=== PATIENT | male | born 1940 | race Caucasian/White ===

== ENCOUNTER 2018-10-24 16:02 | Inpatient (IN) ==
[2018-10-24] MEDS ORDERED: *HR* Dextrose 50 % in Water (Syg) 50 ML SYRINGE IVP PRN (23:16)
[2018-10-24] MEDS ORDERED: Dextrose Gel 15 GM/37.5 ML TUBE PO PRN ×2 (23:16)
[2018-10-24] MEDS ORDERED: D5% in Water 1,000 ML IVC PRN (23:16)
[2018-10-25] MEDS: traZODone 50 MG TABLET PO PRN ×2 (00:10→20:41)
[2018-10-25] MEDS: Albuterol 2.5 MG/3 ML NEBULIZER IH PRN ×3 (02:14→19:50)
[2018-10-25 05:33] LABS: Basophils % 0.2 %; Eosinophils # 0.1 K/mcL (0.0-0.6); Eosinophils % 1.5 %; Hematocrit 26.3 % (37.5-50.1); Hemoglobin 7.8 g/dL (12.9-16.9); Immature Granulocytes % 1.3 % (0-4); Lymphocytes # 0.9 K/mcL (0.6-4.6); Lymphocytes % 16.7 %; Mean Corpuscular HGB Conc 29.7 g/dL (31.6-35.5); Mean Corpuscular Hemoglobin 25.2 pg (28.0-33.3); Mean Corpuscular Volume 85.1 fL (83.0-100.0); Monocytes # 0.4 K/mcL (0.0-1.3); Monocytes % 7.9 %; Neutrophils # 3.9 K/mcL (1.6-8.9); Platelet Count 207 K/mcL (140-400); Red Blood Count 3.09 M/mcL (4.19-5.50); Red Cell Distribution Width 18.2 % (11.5-14.5); Segmented Neutrophils % 72.4 %; White Blood Count 5.4 K/mcL (4.3-11.1)
[2018-10-25 05:49] LABS: Albumin 2.9 g/dL (3.5-5.7); Albumin/Globulin Ratio 1.1 (1.1-2.2); Bilirubin,Total 0.6 mg/dL (0.3-1.0); Calcium 8.5 mg/dL (8.6-10.3); Globulin 2.7 g/dL (2.4-3.5); Magnesium 2.4 mg/dL (1.6-2.6); Potassium 4.2 mEq/L (3.5-5.1); Total Protein 5.6 g/dL (6.4-8.9)
[2018-10-25] MEDS ORDERED: (Tiotropium Bromide [Spiriva Respimat] 2 PUFF) IH SCH (09:00)
--- NOTE | 2018-10-25 09:29 | Internal Med History&Physical ---
Date of Encounter: 10/25/18 Time of Encounter: 09:32 Assessment and Plan (1) CAD (coronary artery disease) Current visit: Yes Status: Chronic Patient is a transfer from [facility] where he was treated for an acute IL and CHF. Patient had a left heart catheter which showed severe multivessel disease, but was not a surgical candidate and received PTCA 3. Patient also was treated for atrial fibrillation with RVR, requiring cardiov ersion and the addition of amiodarone. Patient was also diagnosed with CHF with most recent EF of 30%. Currently patient appears relaxant denies any chest discomforts or palpitations. This morning's EKG shows a sinus rhythm with occasional PACs. Rate controlled at 84 bpm. We will continue on his current medications and with current plan of care. Therapy evaluation pending, with patient planned participation in therapy to be as tolerated due to his cardiac syndrome Qualifiers: Coronary Disease-Associated Artery/Lesion type: [place] artery [place] vs. transplanted heart: [place] heart Associated angina: angina presence unspecified Qualified Code(s): I25.10 - Atherosclerotic heart disease of [place] coronary artery without angina pectoris (2) COPD (chronic obstructive pulmonary disease) Current visit: Yes Status: Chronic Patient with a long history of COPD and had originally presented to the emergency department on 09/30/18 with complaints of shortness of breath, requiring intubation. Patient was on ventilator for approximately 8 days and was extubated with continued use of BiPAP at night. Patient remains on supplemental oxygen and appears relaxed while at rest. Denies any dyspnea or productive cough. Therapy evaluation is pending. We will continue on current medications and bronchodilators. X-ray was obtained this morning which showed continued left lower lobe obesities and a small-moderate pleural effusion. Continued slight pulmonary edema noted on chest x-ray. Lungs have fine rales he indra to the lower third of his posterior [place]. Qualifiers: COPD type: unspecified COPD Qualified Code(s): J44.9 - Chronic obstructive pulmonary disease, unspecified (3) Lower gastrointestinal bleed Current visit: Yes Status: Acute Patient had experienced tarry stools during this admission at [facility] and a drop in his hemoglobin. Patient had a colonoscopy which showed a mass to the hepatic flexure. No biopsy results abdomen provided at this time. No signs of active bleeding at this time but his admission hemoglobin at this facility is 7.8. We will continue to monitor for signs of active bleeding and will repeat his hemoglobin in the morning. We will review his discharge orders for follow- up plan due to the colon mass (4) Atrial fibrillation Current visit: Yes Status: Chronic Patient with a history of atrial fibrillation. During his hospitalization at [facility] he experienced RVR, requiring cardioversion and the addition of amiodarone. Currently he has a controlled rate of less than 100 and his EKG this morning showed patient to be in we will continue with current medications and continue to monitor closely. sinus rhythm with occasional PACs. Qualifiers: Atrial fibrillation type: unspecified Qualified Code(s): I48.91 - Unspecified atrial fibrillation (5) HFrEF (heart failure with reduced ejection fraction) Current visit: Yes Status: Acute Patient was diagnosed with severe CHF with a 30% ejection fraction per [facility]. He currently has fine rales her to the lower posterior third of his lungs. No dyspnea noted during rest. Minimal pedal edema noted. Chest x-ray did show mild pulmonary edema. We will continue with current medications. We will obtain daily weights and monitor closely. Qualifiers: Heart failure chronicity: acute Qualified Code(s): I50.21 - Acute systolic (congestive) heart failure (6) Diabetes Current visit: Yes Status: Acute Patient with long history of diabetes. Currently his fingerstick show glucose levels on less than 200. We will continue with his Levemir dosing and sliding scale coverage. 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 Patient's most recent creatinine is 1.62. We will continue to monitor patient's progress with serial labs. We will continue on current medications. Qualifiers: Chronic kidney disease stage: stage 3 (moderate) Qualified Code(s): N18.3 - Chronic kidney disease, stage 3 (moderate) Internal Medicine - H&P: HPI Chief complaint: weakness Admitted From: Hospital to Hospital Transfer Plans for Post Hospital Care: Home History of present illness: Mr. Guerrero is a 78 year old male, who was transferred to this facility from [facility] where he was treated for respiratory failure, coronary artery disease and evaluated for lower GI bleed. Patient originally presented to [facility] on 09/30/18 with complaints of shortness of breath, which eventually acquired intubation. He was found to have elevated troponins and had a left heart catheter that time which showed severe multivessel disease, to include left main disease. Patient was then transferred to [facility] for further evaluation due to his high risk. C also showed severe left ventricular systolic dysfunction and an EF of 30%. Patient was considered a nonsurgical candidate at [facility] and received 3 coronary stents. His admission was complicated with atrial fibrillation with RVR, which required cardio conversion and the addition of amiodarone to manage his rhythm and rate. Patient remained intubated for a approximate total of 8 days and was extubated, but continues BiPAP at night. Patient was also treated for left lower lobe pneumonia and on CAT scan was found to have a 3 cm left upper lobe nodule. Patient received a bronchoscopy due to hemoptysis, with his current washings results unknown. During his stay at the facility patient was found to have tarry stools and a drop in his hemoglobin. Patient had a colonoscopy which also showed a colon mass at the hepatic flexure. Biopsies were taken with no known results at this time. Patient has a long history of COPD with CHF, CAD, CKD, DM and hypertension. Patient presently appears relaxed and states that his breathing is not at his best but he denies any current dyspnea while at rest. He continues on oxygen per nasal cannula at this time. He denies any productive cough, chest palpitations or chest discomforts. Patient states that he has not ambulated much since his extubation from the ventilator. Past Med Surg Social Fam HX - Past Medical History Medical history: CHF, COPD, diabetes, hypertension, myocardial infarction, other Additional medical history: pulmonary nodles, renal cysts, pneumonia, oxygen use Psychiatric history: no psych history - Past Surgical History Surgical History: angioplasty/stent, herniorrhaphy, other Additional surgical history: LHC, betsey cataracts - Social History Smoking Status: Former smoker Smokeless Tobacco Status: No Alcohol use: none Drug use: none Internal Medicine - H&P: Meds Insulin Glargine,Hum.rec.anlog [Lantus Solostar] 10 units SQ QPM 05/16/15 [History] Lisinopril [Zestril] 5 mg PO DAILY 05/16/15 [History] traZODone [TraZODone] 50 mg PO HS PRN 05/16/15 [History] Atorvastatin Calcium [Lipitor] 40 mg PO QPM 01/07/17 [History] Budesonide/Formoterol 160/4.5 [Symbicort 160/4.5] 2 puff IH BIDR 01/07/17 [History] Cholecalciferol (D-3) [Vitamin D] 1,000 unit PO DAILY 01/07/17 [History] Ferrous Gluconate 324 mg PO DAILY 01/07/17 [History] GlipiZIDE [Glucotrol] 5 mg PO QAM 01/07/17 [History] Guaifenesin [Mucinex] 600 mg PO BID PRN 01/07/17 [History] Isosorbide MONOnitrate (24 HR) [Imdur] 60 mg PO DAILY 01/07/17 [History] Latanoprost [Xalatan] 1 drop BOTH EYES HS 01/07/17 [History] Loratadine [Claritin] 10 mg PO DAILY 01/07/17 [History] Magnesium Oxide [Magnesium] 400 mg PO DAILY 01/07/17 [History] Nitroglycerin [Nitrostat] 0.4 mg SL Q5M PRN 01/07/17 [History] Oxygen 4 l NS CONT 01/07/17 [History] Pantoprazole Sodium [Protonix] 40 mg PO BID 01/07/17 [History] Potassium Chloride [Klor-Con 10] 10 meq PO DAILY 01/07/17 [History] Albuterol Neb [Proventil Neb] 2.5 mg IH Q6HR PRN 09/26/18 [History] Albuterol Sulfate [Proventil Inhaler] 2 puff IH Q4H PRN 09/26/18 [History] Buspirone HCl [Buspar] 10 mg PO TID 09/26/18 [History] Calcium Carbonate/Vitamin D3 [Calcium 500 + Vit D Caplet] 1 tab PO BID 09/26/18 [History] Tiotropium [place] [Spiriva Respimat] 2 puff IH DAILY 09/26/18 [History] Folic Acid 800 mcg PO DAILY 10/24/18 [History] Insulin DETEMIR [Levemir] 10 unit SQ HS 10/24/18 [History] Metoprolol [Lopressor] 25 mg PO BID 10/24/18 [History] Allergy/AdvReac Type Severity Reaction Status Date / Time contrast dye Allergy Hives Uncoded 09/25/18 08:50 All Systems PM: A 10-system review of systems was performed and is negative for pertinent findings except as documented above in the HPI. - Constitutional Constitutional: as per HPI, no chills, no fever(s), no night sweats - EENT Eyes: as per HPI, no change in vision, no discharge, no pain, no photophobia Ears: as per HPI, no ear discharge, no ear pain, no tinnitus Nose, mouth and throat: as per HPI, no dysphagia, no nasal discharge, no neck pain, no sore throat - Breasts Breasts: as per HPI - Cardiovascular Cardiovascular ROS IM: as per HPI, no chest pain, no diaphoresis, no dyspnea, no lightheadedness, no palpitations, no syncope - Respiratory Respiratory: as per HPI, no cough, no dyspnea, no wheezing, no excessive phlegm production - Gastrointestinal Gastrointestinal: as per HPI, no abdominal pain, no diarrhea, no hematemesis, no hematochezia, no melena, no nausea, no vomiting - Genitourinary Genitourinary ROS male: as per HPI - Musculoskeletal Musculoskeletal ROS IM: as per HPI, no numbness, no tingling - Integumentary Integumentary IM: as per HPI, no rash, no unusual bruising - Neurological Neurological ROS: as per HPI, no confusion, no convulsions, no focal weakness, no numbness, no tingling, no tremor(s) - Psychiatric Psychiatric: as per HPI - Hematologic/Lymphatic Hematologic/Lymphatic: no easy bruising - Constitutional Vitals: Temp Pulse Resp BP Pulse Ox 97.8 F 86 18 106/54 92 10/25/18 07:13 10/25/18 07:13 10/25/18 07:13 10/25/18 07:13 10/25/18 07:13 General appearance: Present: A&O X 3, pleasant - Head Head exam: Present: atraumatic, normocephalic - Eye Eye exam: Present: PERRL, conjuntiva pink, sclera anicteric Pupils: Present: PERRL - Neck Neck exam general surgery: Present: supple, trachea midline. Absent: lymphadenopathy - Respiratory Respiratory exam: Present: decreased breath sounds, CTAB, rales. Absent: access ory muscle use, rhonchi, wheezes Additional comments: Lungs are clear throughout upper [place] but noted fine posterior bibasilar rales to the lower third of his lung [place]. Respiratory effort appears relaxed. No productive cough noted. - Cardiovascular Cardiovascular exam: Present: RRR, +S1, +S2, systolic murmur. Absent: diastolic murmur, gallop, rubs - GI/Abdominal GI/Abdominal exam: Present: normal bowel sounds, soft, no peritoneal signs. Absent: distended, tenderness - Extremities Exam Extremities exam: Present: pedal edema, warm, radial pulses palpable and symmetrical. Absent: calf tenderness, cyanotic Additional comments: Slight nonpitting edema to bilateral lower extremities - Neurological Exam Neurological exam: Present: CN II-XII intact, oriented X3, no focal deficits. Absent: pronater drift, facial droop, speech deficit - Skin Skin exam: Present: dry, intact Internal Med - H&P Results - Labs CBC & Chem 7: 10/25/18 05:19 10/25/18 05:19 Labs: Short CBC 10/25/18 Range/Units 05:19 WBC 5.4 (4.3-11.1) K/mcL Hgb 7.8 L (12.9-16.9) g/dL Hct 26.3 L (37.5-50.1) % Plt Count 207 (140-400) K/mcL Neutrophils # 3.9 (1.6-8.9) K/mcL BMP 10/25/18 05:19 Sodium 136 Potassium 4.2 Chloride 101 Carbon Dioxide 31 H BUN 37 H Creatinine 1.62 H Glucose 142 H Calcium 8.5 L Liver Function 10/25/18 Range/Units 05:19 Total Bilirubin 0.6 (0.3-1.0) mg/dL AST 15 (13-39) Units/L ALT 20 (7-52) Units/L Alkaline Phosphatase 45 (34-104) Units/L Albumin 2.9 L (3.5-5.7) g/dL - Impressions ITS Impressions Chest X-Ray 10/25/18 08:34 IMPRESSION: 1. Interval removal of all lines and tubes. 2. Left base opacity with small to moderate pleural effusion. 3. Cardiomegaly with pulmonary edema. D/ / 10/25/2018 09:10:37 Shae Villarreal MD / jese Interpreting Provider: Shae Villarreal MD
[2018-10-25] MEDS: Budesonide/Formoterol 160/4.5 1 PUFF INH IH SCH ×2 (09:42→19:53)
[2018-10-25] MEDS ORDERED: Tiotropium 18 MCG inhalation IH SCH (09:45)
[2018-10-25] MEDS: Isosorbide MONOnitrate (24 HR) 60 MG TAB.ER.24H PO SCH (09:46)
[2018-10-25] MEDS: GlipiZIDE 5 MG TABLET PO SCH (09:46)
[2018-10-25] MEDS: *HR* Amiodarone 200 MG TABLET PO SCH (09:47)
[2018-10-25] MEDS: Cholecalciferol (D-3) 1,000 UNIT (25MCG) TABLET PO SCH (09:47)
[2018-10-25] MEDS: Folic Acid 1 MG TABLET PO SCH (09:47)
[2018-10-25] MEDS: Loratadine 10 MG TABLET PO SCH (09:48)
[2018-10-25] MEDS: Magnesium Oxide 400 MG TABLET PO SCH (09:48)
[2018-10-25] MEDS: Metoprolol XL (24 HR) Succ 25 MG TAB.ER.24H PO SCH ×2 (09:48→19:54)
[2018-10-25] MEDS: Insulin LISPRO 300 UNITS/3 ML VIAL SQ SCH ×4 (09:53→20:34)
[2018-10-25] MEDS: TIOTROPIUM IH SCH (11:18)
--- NOTE | 2018-10-25 12:10 | Electrocardiograph Report ---
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
[2018-10-25] MEDS: Insulin DETEMIR 100 UNIT/ML X5UNITS SQ SCH (20:35)
[2018-10-25] MEDS: Latanoprost 2.5 ML BOTTLE BOTH EYES SCH (20:41)
[2018-10-26] MEDS: *HR* Enoxaparin 30 MG/0.3 ML SYRINGE SQ SCH (05:11)
[2018-10-26] MEDS: Albuterol 2.5 MG/3 ML NEBULIZER IH PRN ×2 (05:15→19:27)
[2018-10-26 05:56] LABS: Hematocrit 27.2 % (37.5-50.1); Hemoglobin 8.1 g/dL (12.9-16.9); Mean Corpuscular HGB Conc 29.8 g/dL (31.6-35.5); Mean Corpuscular Hemoglobin 25.6 pg (28.0-33.3); Mean Corpuscular Volume 85.8 fL (83.0-100.0); Mean Platelet Volume 9.2 fL (9.4-12.4); Platelet Count 251 K/mcL (140-400); Red Blood Count 3.17 M/mcL (4.19-5.50); Red Cell Distribution Width 18.2 % (11.5-14.5); White Blood Count 5.3 K/mcL (4.3-11.1)
[2018-10-26 06:13] LABS: Calcium 8.8 mg/dL (8.6-10.3); Magnesium 2.5 mg/dL (1.6-2.6); Potassium 4.6 mEq/L (3.5-5.1)
[2018-10-26 06:26] LABS: Thyroid Stimulating Hormone 8.468 mcIU/mL (0.340-5.600)
[2018-10-26] MEDS: Folic Acid 1 MG TABLET PO SCH (08:27)
[2018-10-26] MEDS: GlipiZIDE 5 MG TABLET PO SCH (08:28)
[2018-10-26] MEDS: Metoprolol XL (24 HR) Succ 25 MG TAB.ER.24H PO SCH (08:28)
[2018-10-26] MEDS: Cholecalciferol (D-3) 1,000 UNIT (25MCG) TABLET PO SCH (08:28)
[2018-10-26] MEDS: *HR* Amiodarone 200 MG TABLET PO SCH (08:28)
[2018-10-26] MEDS: Loratadine 10 MG TABLET PO SCH (08:28)
[2018-10-26] MEDS: Magnesium Oxide 400 MG TABLET PO SCH (08:28)
[2018-10-26] MEDS: Isosorbide MONOnitrate (24 HR) 60 MG TAB.ER.24H PO SCH (08:28)
[2018-10-26] MEDS: Insulin LISPRO 300 UNITS/3 ML VIAL SQ SCH ×4 (08:30→22:59)
[2018-10-26] MEDS: Budesonide/Formoterol 160/4.5 1 PUFF INH IH SCH ×2 (11:16→19:27)
[2018-10-26] MEDS: TIOTROPIUM IH SCH (11:19)
--- NOTE | 2018-10-26 11:25 | Internal Med Progress Note ---
Date of Encounter: 10/26/18 Time of Encounter: 11:23 - Assessment and plan (1) CAD (coronary artery disease) Current Visit: Yes Status: Chronic Assessment and plan: No acute issues. Patient has dissipated physical therapy yesterday and denied any chest discomforts or palpitations. Patient states that he did well with therapy and denies any dyspnea. We will continue with current plan of care and medications. Qualifiers: Coronary Disease-Associated Artery/Lesion type: [place] artery [place] vs. transplanted heart: [place] heart Associated angina: angina presence unspecified Qualified Code(s): I25.10 - Atherosclerotic heart disease of [place] coronary artery without angina pectoris (2) COPD (chronic obstructive pulmonary disease) Current Visit: Yes Status: Chronic Assessment and plan: No acute issues. Patient denies any dyspnea on exertion while performing therapy yesterday. Patient continues on supplemental oxygen at 2 L/m nasal cannula. Noted fine rales to use posterior bases on auscultation. Patient sta juan that he has had a productive cough with hemoptysis, , but that only a scant amount of blood has been noted.. Remains afebrile. We will continue with current bronchodilators and medications. Qualifiers: COPD type: unspecified COPD Qualified Code(s): J44.9 - Chronic obstructive pulmonary disease, unspecified (3) Lower gastrointestinal bleed Current Visit: Yes Status: Acute Assessment and plan: No acute issues. Patient denies any melena. Patient's most recent hemoglobin has actually increased to 8.1. We will continue to monitor through serial labs. (4) Diabetes Current Visit: Yes Status: Chronic Assessment and plan: No acute issues. Patient's glucoses were well-controlled with most readings less than 150. 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 Patient's most recent creatinine has slightly increased 1.90. We will continue to monitor patient's mental status to serial labs. We will continue on current medications. We will obtain daily weights Qualifiers: Chronic kidney disease stage: stage 3 (moderate) Qualified Code(s): N18.3 - Chronic kidney disease, stage 3 (moderate) - Subjective Interval history: Patient appears relaxed and currently denies any discomforts or shortness of breath. Patient states that therapy was progressing well yesterday and denied any dyspnea during his exertion. Denies any chest discomforts or palpitations. - Constitutional Vitals: Temp Pulse Resp BP Pulse Ox 98.0 F 78 18 100/58 96 10/26/18 07:00 10/26/18 07:00 10/26/18 07:00 10/26/18 07:00 10/26/18 07:00 General appearance: Present: A&O X 3, pleasant - Head Head exam: Present: atraumatic, normocephalic - Eye Eye exam: Present: PERRL, conjuntiva pink, sclera anicteric Pupils: Present: PERRL - Neck Neck exam general surgery: Present: supple, trachea midline. Absent: lymphadenopathy - Respiratory Respiratory exam: Present: decreased breath sounds, CTAB, rales. Absent: accessory muscle use, rhonchi, wheezes Additional comments: Lungs are clear throughout upper [place] with noted diminished breath sounds to the lower half of his lung [place]. Patient with fine rales her to the posterior basilar. Respiratory effort appears relaxed while at rest. - Cardiovascular Cardiovascular exam: Present: RRR, +S1, +S2. Absent: diastolic murmur, gallop, rubs, systolic murmur - GI/Abdominal GI/Abdominal exam: Present: normal bowel sounds, soft, no peritoneal signs. Absent: distended, tenderness - Extremities Exam Extremities exam: Present: pedal edema, warm, radial pulses palpable and symmetrical. Absent: calf tenderness, cyanotic - Neurological Exam Neurological exam: Present: CN II-XII intact, oriented X3, no focal deficits. Absent: pronater drift, facial droop, speech deficit - Skin Skin exam: Present: dry, intact Internal Medicine: Result - Labs CBC & Chem 7: 10/26/18 05:45 10/26/18 05:45 Labs: Short CBC 10/26/18 Range/Units 05:45 WBC 5.3 (4.3-11.1) K/mcL Hgb 8.1 L (12.9-16.9) g/dL Hct 27.2 L (37.5-50.1) % Plt Count 251 (140-400) K/mcL [facility] 10/26/18 05:45 Sodium 135 L Potassium 4.6 Chloride 99 Carbon Dioxide 31 H BUN 42 H Creatinine 1.90 H Glucose 132 H Calcium 8.8 Consult Discharge Plan - Plan Referrals: Kuldip Forrest MD [Primary Care Provider] -
[2018-10-26] MEDS ORDERED: Insulin DETEMIR 100 UNIT/ML per UNIT SQ SCH (22:45)
[2018-10-26] MEDS: traZODone 50 MG TABLET PO PRN (22:59)
[2018-10-26] MEDS: Latanoprost 2.5 ML BOTTLE BOTH EYES SCH (23:20)
[2018-10-27] MEDS: *HR* Enoxaparin 30 MG/0.3 ML SYRINGE SQ SCH (05:43)
[2018-10-27] MEDS: Albuterol 2.5 MG/3 ML NEBULIZER IH PRN ×3 (06:16→18:53)
[2018-10-27] MEDS: Budesonide/Formoterol 160/4.5 1 PUFF INH IH SCH ×2 (08:35→20:41)
[2018-10-27] MEDS: TIOTROPIUM IH SCH (08:37)
[2018-10-27] MEDS: Nitroglycerin 0.4 MG TAB.SUBL SL PRN ×2 (09:06→09:11)
[2018-10-27] MEDS: Insulin LISPRO 300 UNITS/3 ML VIAL SQ SCH ×4 (09:26→20:34)
[2018-10-27] MEDS: Cholecalciferol (D-3) 1,000 UNIT (25MCG) TABLET PO SCH (09:45)
[2018-10-27] MEDS: Folic Acid 1 MG TABLET PO SCH (09:45)
[2018-10-27] MEDS: Loratadine 10 MG TABLET PO SCH (09:45)
[2018-10-27] MEDS: Magnesium Oxide 400 MG TABLET PO SCH (09:45)
[2018-10-27] MEDS: Metoprolol XL (24 HR) Succ 50 MG TAB.ER.24H PO SCH (09:46)
[2018-10-27] MEDS: Isosorbide MONOnitrate (24 HR) 60 MG TAB.ER.24H PO SCH (09:46)
[2018-10-27] MEDS: *HR* Amiodarone 200 MG TABLET PO SCH (09:46)
[2018-10-27] MEDS: GlipiZIDE 5 MG TABLET PO SCH (09:46)
[2018-10-27] MEDS: Insulin DETEMIR 100 UNIT/ML X5UNITS SQ SCH (10:28)
--- NOTE | 2018-10-27 10:43 | Electrocardiograph Report ---
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
[2018-10-27 11:15] LABS: Basophils % 0.2 %; Eosinophils # 0.1 K/mcL (0.0-0.6); Eosinophils % 1.8 %; Lymphocytes # 0.9 K/mcL (0.6-4.6); Mean Corpuscular HGB Conc 28.6 g/dL (31.6-35.5); Mean Corpuscular Hemoglobin 24.8 pg (28.0-33.3); Mean Platelet Volume 9.7 fL (9.4-12.4); Monocytes # 0.4 K/mcL (0.0-1.3); Monocytes % 7.1 %; Neutrophils # 4.6 K/mcL (1.6-8.9); Platelet Count 281 K/mcL (140-400); Red Blood Count 3.22 M/mcL (4.19-5.50); Red Cell Distribution Width 18.4 % (11.5-14.5); Segmented Neutrophils % 75.9 %; White Blood Count 6.1 K/mcL (4.3-11.1)
--- NOTE | 2018-10-27 11:42 | Internal Med Progress Note ---
Date of Encounter: 10/27/18 Time of Encounter: 11:40 - Assessment and plan (1) CAD (coronary artery disease) Current Visit: Yes Status: Chronic Assessment and plan: Patient had an episode of chest pain this morning which responded well to nitroglycerin. EKG showed no ischemic changes or ectopy. Patient currently states that he is pain-free and denies any palpitations. We will continue with current medications and have patient continue with therapy as tolerated. Qualifiers: Coronary Disease-Associated Artery/Lesion type: [place] artery [place] vs. transplanted heart: [place] heart Associated angina: angina presence unspecified Qualified Code(s): I25.10 - Atherosclerotic heart disease of [place] coronary artery without angina pectoris (2) COPD (chronic obstructive pulmonary disease) Current Visit: Yes Status: Chronic Assessment and plan: No acute issues. Patient denies any dyspnea on exertion while performing therapy yesterday. Patient continues on supplemental oxygen at 2 L/m nasal cannula. Noted fine rales to use posterior bases on auscultation. Patient states that he has had a productive cough with hemoptysis, , but that only a scant amount of blood has been noted.. Remains afebrile. We will continue with current bronchodilators and medications. Qualifiers: COPD type: unspecified COPD Qualified Code(s): J44.9 - Chronic obstructive pulmonary disease, unspecified (3) Lower gastrointestinal bleed Current Visit: Yes Status: Acute Assessment and plan: No acute issues. Patient denies any melena. Patient's most recent hemoglobin has actually increased to 8.1. We will continue to monitor through serial labs. (4) Diabetes Current Visit: Yes Status: Chronic Assessment and plan: No acute issues. Patient's glucoses were well-controlled with most readings less than 150. We will continue with sliding scale coverage and current medications Qualifiers: Diabetes mellitus type: type 2 Diabetes mellitus senior living insulin use: with senior living use Diabetes mellitus complication status: with circulatory complication Diabetes mellitus complication detail: with other circulatory complications Qualified Code(s): E11.59 - Type 2 diabetes mellitus with other circulatory complications; Z79.4 - retirement (current) use of insulin (5) Chronic kidney disease (CKD) Current Visit: Yes Status: Chronic Assessment and plan: No acute issues. Patient's most recent creatinine has slightly increased 1.90. We will continue to monitor patient's mental status to serial labs. We will continue on current medications. We will obtain daily weights Qualifiers: Chronic kidney disease stage: stage 3 (moderate) Qualified Code(s): N18.3 - Chronic kidney disease, stage 3 (moderate) - Time Spent With Patient less than 15 minutes - Subjective Interval history: Patient with complaints of substernal chest pressure this morning was slight dyspnea related. Radiation of pain. Patient states the characteristics of the pain is similar to what he had in recent past. Patient had an EKG that was performed which showed no ischemic changes or ectopy. He was given a sublingual nitroglycerin and after approximately 5-7 minutes stated that his pain had resolved. Patient was reevaluated approximately 30 minutes later and states that his pain continues to be resolved and that his pulmonary status is imp roving. He denied any palpitations. Patient states that therapy has been progressing well for him. - Constitutional Vitals: Temp Pulse Resp BP Pulse Ox 98.2 F 83 20 108/60 98 10/27/18 11:03 10/27/18 11:03 10/27/18 11:03 10/27/18 11:03 10/27/18 11:03 General appearance: Present: A&O X 3, pleasant - Head Head exam: Present: atraumatic, normocephalic - Eye Eye exam: Present: PERRL, conjuntiva pink, sclera anicteric Pupils: Present: PERRL - Neck Neck exam general surgery: Present: supple, trachea midline. Absent: lymphadenopathy - Respiratory Respiratory exam: Present: decreased breath sounds, CTAB, rales. Absent: acces max muscle use, rhonchi, wheezes Additional comments: Patient's lungs are clear throughout upper [place] but diminished diminished breath sounds to lower half [place]. Noted fine scattered rales posterior bases. Respiratory effort appears relaxed. - Cardiovascular Cardiovascular exam: Present: RRR, +S1, +S2, systolic murmur. Absent: diastolic murmur, gallop, rubs - GI/Abdominal GI/Abdominal exam: Present: normal bowel sounds, soft, no peritoneal signs. Absent: distended, tenderness - Extremities Exam Extremities exam: Present: warm, radial pulses palpable and symmetrical. Absent: calf tenderness, cyanotic, pedal edema - Neurological Exam Neurological exam: Present: CN II-XII intact, oriented X3, no focal deficits. Absent: pronater drift, facial droop, speech deficit - Skin Skin exam: Present: dry, intact Internal Medicine: Result - Labs CBC & Chem 7: 10/27/18 09:13 10/26/18 05:45 Labs: Short CBC 10/27/18 Range/Units 09:13 WBC 6.1 (4.3-11.1) K/mcL Hgb 8.0 L (12.9-16.9) g/dL Hct 28.0 L (37.5-50.1) % Plt Count 281 (140-400) K/mcL Cardiac Enzymes 10/27/18 Range/Units 09:13 Troponin I 0.03 (< 0.04) ng/mL - Impressions Impressions Chest X-Ray 10/25/18 08:34 IMPRESSION: 1. Interval removal of all lines and tubes. 2. Left base opacity with small to moderate pleural effusion. 3. Cardiomegaly with pulmonary edema. D/ / 10/25/2018 09:10:37 Shae Villarreal MD / jese Interpreting Provider: Shae Villarreal MD Chest X-Ray 10/27/18 09:06 IMPRESSION: No substantial interval change. Persistent left pleural effusion with associated atelectasis/pneumonia. Widespread parenchymal opacity may reflect pulmonary edema or possibly pneumonia. D/ / Truong Simeon MD / Truong Simeon MD Interpreting Provider: Truong Simeon MD Consult Discharge Plan - Plan Referrals: Kuldip Forrest MD [Primary Care Provider] -
[2018-10-27 13:11] LABS: Hypochromasia Present (Not Present); Ovalocytes 1+ (Not Present); Platelet Estimate Normal (Normal)
[2018-10-27] MEDS: Furosemide 40 MG TABLET PO SCH (14:15)
[2018-10-27] MEDS: Latanoprost 2.5 ML BOTTLE BOTH EYES SCH (20:41)
[2018-10-27] MEDS ORDERED: Insulin DETEMIR 100 UNIT/ML X5UNITS SQ SCH (21:00)
[2018-10-27] MEDS: traZODone 50 MG TABLET PO PRN (22:28)
[2018-10-28] MEDS: Albuterol 2.5 MG/3 ML NEBULIZER IH PRN ×2 (03:12→19:21)
[2018-10-28] MEDS: *HR* Enoxaparin 30 MG/0.3 ML SYRINGE SQ SCH (05:09)
[2018-10-28] MEDS: Nitroglycerin 0.4 MG TAB.SUBL SL PRN (05:16)
[2018-10-28 05:42] LABS: Basophils % 0.2 %; Eosinophils # 0.1 K/mcL (0.0-0.6); Eosinophils % 1.6 %; Hematocrit 25.6 % (37.5-50.1); Hemoglobin 7.5 g/dL (12.9-16.9); Immature Granulocytes % 1.2 % (0-4); Lymphocytes % 18.4 %; Mean Corpuscular HGB Conc 29.3 g/dL (31.6-35.5); Mean Corpuscular Hemoglobin 25.2 pg (28.0-33.3); Mean Corpuscular Volume 85.9 fL (83.0-100.0); Mean Platelet Volume 9.1 fL (9.4-12.4); Monocytes # 0.4 K/mcL (0.0-1.3); Monocytes % 7.2 %; Platelet Count 269 K/mcL (140-400); Red Blood Count 2.98 M/mcL (4.19-5.50); Red Cell Distribution Width 18.1 % (11.5-14.5); Segmented Neutrophils % 71.4 %; White Blood Count 5.7 K/mcL (4.3-11.1)
[2018-10-28 06:01] LABS: Calcium 8.4 mg/dL (8.6-10.3); Potassium 5.1 mEq/L (3.5-5.1)
[2018-10-28] MEDS: Magnesium Oxide 400 MG TABLET PO SCH (07:57)
[2018-10-28] MEDS: Insulin LISPRO 300 UNITS/3 ML VIAL SQ SCH ×4 (07:58→20:43)
[2018-10-28] MEDS: Loratadine 10 MG TABLET PO SCH (07:58)
[2018-10-28] MEDS: Folic Acid 1 MG TABLET PO SCH (07:58)
[2018-10-28] MEDS: GlipiZIDE 5 MG TABLET PO SCH (07:58)
[2018-10-28] MEDS: *HR* Amiodarone 200 MG TABLET PO SCH (07:58)
[2018-10-28] MEDS: Isosorbide MONOnitrate (24 HR) 60 MG TAB.ER.24H PO SCH (07:59)
[2018-10-28] MEDS: Cholecalciferol (D-3) 1,000 UNIT (25MCG) TABLET PO SCH (08:00)
[2018-10-28] MEDS: Furosemide 40 MG TABLET PO SCH (08:00)
[2018-10-28] MEDS: Metoprolol XL (24 HR) Succ 50 MG TAB.ER.24H PO SCH (08:04)
[2018-10-28] MEDS: TIOTROPIUM IH SCH (09:53)
[2018-10-28] MEDS: Budesonide/Formoterol 160/4.5 1 PUFF INH IH SCH ×2 (09:53→19:23)
--- NOTE | 2018-10-28 18:08 | Internal Med Progress Note ---
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 No sasha chest pain. His blood sugars have been running low and he gets 10 U long acting insulin at hs. likely having overnight low blood sugars symptomatic. Will DC hs insulin. His blood pressures run low he has apt tuesday with cardiology dr rocha. he is new on amiodarone he has toprol xl 50 but this has been held last few days he has hyperdynamic pulses will restart beta eugenia at low dose 12.5 mg r egular bid. add ASA 81 mg stop lisinopril 5 mg lovenox being DC due to anemia and HB drift down Patient states that he did well with therapy and denies any dyspnea. We will continue with current plan of care and medications. Qualifiers: Coronary Disease-Associated Artery/Lesion type: [place] artery [place] vs. transplanted heart: [place] heart Associated angina: angina presence unspecified Qualified Code(s): I25.10 - Atherosclerotic heart disease of [place] coronary artery without angina pectoris (2) COPD (chronic obstructive pulmonary disease) Current Visit: Yes Status: Chronic Assessment and plan: No acute issues. pt still with scant sputum cough. states he has had 2 recent bronchosopies. Patient continues on supplemental oxygen at 2 L/m nasal cannula. Noted fine rales to use posterior bases on auscultation. Patient states that he has had a productive cough with hemoptysis, , but that no blood has been noted.. Remains afebrile. We will continue with current bronchodilators and medications. Qualifiers: COPD type: unspecified COPD Qualified Code(s): J44.9 - Chronic obstructive pulmonary disease, unspecified (3) Lower gastrointestinal bleed with ANEMIA Current Visit: Yes Status: Acute Assessment and plan: no abd pain poor eating Patient denies any melena. Patient's most recent hemoglobin drift back down from 8.1 to 7.5 will DC lovenox will check b12 and iron levels . We will continue to mo nitor through serial labs. 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 Patient's most recent creatinine has slightly increased 1.90. We will continue to monitor patient's mental status to serial labs. We will continue on current medications. We will obtain daily weights Qualifiers: Chronic kidney disease stage: stage 3 (moderate) Qualified Code(s): N18.3 - Chronic kidney disease, stage 3 (moderate) - Subjective Interval history: pt currently stable as above he is discouraged over prolonged illness EXAM General appearance: Present: A&O X 3, pleasant - Head Head exam: Present: atraumatic, normocephalic - Eye Eye exam: Present: PERRL, conjuntiva pink, sclera anicteric Pupils: Present: PERRL - Neck Neck exam general surgery: Present: supple, trachea midline. Absent: lymphadenopathy - Respiratory Respiratory exam: Present: decreased breath sounds, CTAB, rales. Absent: accessory muscle use, rhonchi, wheezes Additional comments: Lungs are clear throughout upper [place] with noted diminished breath sounds to the lower half of his lung [place]. Patient with fine rales her to the posterior basilar. Respiratory effort appears relaxed while at rest. - Cardiovascular Cardiovascular exam: Present: RRR, +S1, +S2. Absent: diastolic murmur, gallop, rubs, systolic murmur - GI/Abdominal GI/Abdominal exam: Present: normal bowel sounds, soft, no peritoneal signs. Absent: distended, tenderness - Extremities Exam Extremities exam: Present: pedal edema, warm, radial pulses palpable and symmetrical. Absent: calf tenderness, cyanotic - Neurological Exam Neurological exam: Present: CN II-XII intact, oriented X3, no focal deficits. Absent: pronater drift, facial droop, speech deficit - Skin Skin exam: Present: dry, intact - Constitutional Vitals: Temp Pulse Resp BP Pulse Ox 98.6 F 80 18 112/59 97 10/28/18 11:52 10/28/18 11:52 10/28/18 11:52 10/28/18 11:52 10/28/18 11:52 General appearance: Present: A&O X 3, pleasant Internal Medicine: Result - Labs CBC & Chem 7: 10/29/18 04:34 10/28/18 05:40 Labs: Short CBC 10/28/18 Range/Units 05:40 WBC 5.7 (4.3-11.1) K/mcL Hgb 7.5 L (12.9-16.9) g/dL Hct 25.6 L (37.5-50.1) % Plt Count 269 (140-400) K/mcL Neutrophils # 4.0 (1.6-8.9) K/mcL BMP 10/28/18 05:40 Sodium 136 Potassium 5.1 Chloride 102 Carbon Dioxide 31 H BUN 36 H Creatinine 1.55 H Glucose 148 H Calcium 8.4 L Cardiac Enzymes 10/27/18 Range/Units 21:15 Troponin I 0.03 (< 0.04) ng/mL Consult Discharge Plan - Plan Referrals: Kuldip Forrest MD [Primary Care Provider] -
[2018-10-28] MEDS: traZODone 50 MG TABLET PO SCH (22:33)
[2018-10-28] MEDS: Latanoprost 2.5 ML BOTTLE BOTH EYES SCH (22:33)
[2018-10-29 05:02] LABS: Hematocrit 26.2 % (37.5-50.1); Hemoglobin 7.5 g/dL (12.9-16.9); Mean Corpuscular HGB Conc 28.6 g/dL (31.6-35.5); Mean Corpuscular Volume 87.3 fL (83.0-100.0); Mean Platelet Volume 9.2 fL (9.4-12.4); Platelet Count 295 K/mcL (140-400); Red Cell Distribution Width 18.3 % (11.5-14.5); White Blood Count 5.4 K/mcL (4.3-11.1)
[2018-10-29] MEDS: Albuterol 2.5 MG/3 ML NEBULIZER IH PRN ×2 (05:46→20:04)
[2018-10-29] MEDS: Aspirin Enteric Coated 81 MG Tablet PO SCH (08:17)
[2018-10-29] MEDS: Loratadine 10 MG TABLET PO SCH (08:17)
[2018-10-29] MEDS: Furosemide 40 MG TABLET PO SCH (08:18)
[2018-10-29] MEDS: GlipiZIDE 5 MG TABLET PO SCH (08:18)
[2018-10-29] MEDS: *HR* Amiodarone 200 MG TABLET PO SCH (08:18)
[2018-10-29] MEDS: Folic Acid 1 MG TABLET PO SCH (08:18)
[2018-10-29] MEDS: Isosorbide MONOnitrate (24 HR) 60 MG TAB.ER.24H PO SCH (08:18)
[2018-10-29] MEDS: Cholecalciferol (D-3) 1,000 UNIT (25MCG) TABLET PO SCH (08:18)
[2018-10-29] MEDS: Magnesium Oxide 400 MG TABLET PO SCH (08:18)
[2018-10-29] MEDS: TIOTROPIUM IH SCH (10:05)
[2018-10-29] MEDS: Budesonide/Formoterol 160/4.5 1 PUFF INH IH SCH ×2 (10:06→20:03)
[2018-10-29 11:34] LABS: % Iron Saturation 8 % (20-55); Iron 22 mcg/dL (65-175); Transferrin 199 mg/dL (203-362)
[2018-10-29] MEDS: Insulin LISPRO 300 UNITS/3 ML VIAL SQ SCH ×3 (12:31→21:06)
--- NOTE | 2018-10-29 18:57 | Internal Med Progress Note ---
Date of Encounter: 10/29/18 Time of Encounter: 18:10 - Subjective Interval history: s BP low continue metoprolol and amiodarone stop lisinopril 5 mg DM sugars lower continue po gluc 5 mg am for now stp 10 mg long acting at night change night traz to sched stop lovenox hb drifing down known gi source hb 7.5 add asa 81 mg for card gi ppi anemai on oral iron check iron group and lab b12 s - Assessment and plan (1) CAD (coronary artery disease) Current Visit: Yes Status: Chronic Assessment and plan: Pt has improved sleep without early am awakening No sasha chest pain. His blood sugars have been running low and he was getting 10 U long acting insulin at hs. likely having overnight low blood sugars symptomatic. did DC hs insulin. His blood pressures run low he has apt tuesday with cardiology dr rocha. he is new on amiodarone he has toprol xl 50 but this has been held last few days he has hyperdynamic pulses did restart beta eugenia at low dose 12.5 mg regular bid. add ASA 81 mg stop lisinopril 5 mg lovenox being DC due to anemia and HB drift down We will continue with current plan of care and medications. Qualifiers: Coronary Disease-Associated Artery/Lesion type: [place] artery [place] vs. transplanted heart: [place] heart Associated angina: angina presence unspecified Qualified Code(s): I25.10 - Atherosclerotic heart disease of [place] coronary artery without angina pectoris (2) COPD (chronic obstructive pulmonary disease) Current Visit: Yes Status: Chronic Assessment and plan: No acute issues. pt still with scant sputum cough. states he has had 2 recent bronchosopies. Patient continues on supplemental oxygen at 2 L/m nasal cannula. Noted fine rales to use posterior bases on auscultation. Patient states that he has had a productive cough with hemoptysis, , but that no blood has been noted.. Remains afebrile. We will continue with current bronchodilators and medications. Qualifiers: COPD type: unspecified COPD Qualified Code(s): J44.9 - Chronic obstructive pulmonary disease, unspecified (3) Lower gastrointestinal bleed with ANEMIA Current Visit: Yes Status: Acute Assessment and plan: no abd pain poor eating Patient denies any melena. Patient's most recent hemoglobin drift back down from 8.1 to 7.5 will DC lovenox will check b12 and iron levels . We will continue to monitor through serial labs. 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 We will continue on current medications. We will obtain daily weights Qualifiers: Chronic kidney disease stage: stage 3 (moderate) Qualified Code(s): N18.3 - Chronic kidney disease, stage 3 (moderate) - Subjective Interval history: pt currently stable as above . He is alert he has cardiology apt tomorrow EXAM General appearance: Present: A&O X 3, pleasant - Head Head exam: Present: atraumatic, normocephalic - Eye Eye exam: Present: PERRL, conjuntiva pink, sclera anicteric Pupils: Present: PERRL - Neck Neck exam general surgery: Present: supple, trachea midline. Absent: lymphadeno rodrick - Respiratory Respiratory exam: Present: decreased breath sounds, CTAB, rales. Absent: accessory muscle use, rhonchi, wheezes Additional comments: Lungs are clear throughout upper [place] with noted diminished breath sounds to t he lower half of his lung [place]. Patient with fine rales her to the posterior basilar. Respiratory effort appears relaxed while at rest. - Cardiovascular Cardiovascular exam: Present: RRR, +S1, +S2. Absent: diastolic murmur, gallop, rubs, systolic murmur - GI/Abdominal GI/Abdominal exam: Present: normal bowel sounds, soft, no peritoneal signs. Absent: distended, tenderness - Extremities Exam Extremities exam: Present: pedal edema, warm, radial pulses palpable and symmetrical. Absent: calf tenderness, cyanotic - Neurological Exam Neurological exam: Present: CN II-XII intact, oriented X3, no focal deficits. Absent: pronater drift, facial droop, speech deficit - Skin Skin exam: Present: dry, intact - Constitutional Vitals: Temp Pulse Resp BP Pulse Ox 97.8 F 85 15 91/48 98 10/29/18 07:51 10/29/18 07:51 10/29/18 07:51 10/29/18 07:51 10/29/18 07:51 General appearance: Present: A&O X 3, pleasant Internal Medicine: Result - Labs CBC & Chem 7: 10/29/18 04:34 10/28/18 05:40 Labs: Short CBC 10/29/18 Range/Units 04:34 WBC 5.4 (4.3-11.1) K/mcL Hgb 7.5 L (12.9-16.9) g/dL Hct 26.2 L (37.5-50.1) % Plt Count 295 (140-400) K/mcL Consult Discharge Plan - Plan Referrals: Kuldip Forrest MD [Primary Care Provider] -
[2018-10-29] MEDS: Latanoprost 2.5 ML BOTTLE BOTH EYES SCH (21:12)
[2018-10-29] MEDS: traZODone 50 MG TABLET PO SCH (21:12)
[2018-10-30 06:09] LABS: Hematocrit 26.2 % (37.5-50.1); Hemoglobin 7.6 g/dL (12.9-16.9); Mean Corpuscular Hemoglobin 25.2 pg (28.0-33.3); Mean Platelet Volume 9.9 fL (9.4-12.4); Platelet Count 266 K/mcL (140-400); Red Blood Count 3.01 M/mcL (4.19-5.50); Red Cell Distribution Width 18.3 % (11.5-14.5); White Blood Count 5.9 K/mcL (4.3-11.1)
[2018-10-30 06:21] LABS: Calcium 8.3 mg/dL (8.6-10.3); Potassium 5.6 mEq/L (3.5-5.1)
[2018-10-30] MEDS: Levalbuterol Neb 0.63 MG/3 ML IH SCH ×2 (07:08→20:29)
[2018-10-30] MEDS: Budesonide/Formoterol 160/4.5 1 PUFF INH IH SCH ×2 (07:19→20:26)
[2018-10-30] MEDS: TIOTROPIUM IH SCH (07:21)
[2018-10-30] MEDS: Insulin LISPRO 300 UNITS/3 ML VIAL SQ SCH ×4 (08:13→22:31)
[2018-10-30] MEDS: Magnesium Oxide 400 MG TABLET PO SCH (08:21)
[2018-10-30] MEDS: Aspirin Enteric Coated 81 MG Tablet PO SCH (08:22)
[2018-10-30] MEDS: GlipiZIDE 5 MG TABLET PO SCH (08:22)
[2018-10-30] MEDS: Folic Acid 1 MG TABLET PO SCH (08:23)
[2018-10-30] MEDS: *HR* Amiodarone 200 MG TABLET PO SCH (08:23)
[2018-10-30] MEDS: Isosorbide MONOnitrate (24 HR) 60 MG TAB.ER.24H PO SCH (08:23)
[2018-10-30] MEDS: Loratadine 10 MG TABLET PO SCH (08:23)
[2018-10-30] MEDS: Furosemide 40 MG TABLET PO SCH (08:23)
[2018-10-30] MEDS: Cholecalciferol (D-3) 1,000 UNIT (25MCG) TABLET PO SCH (08:23)
--- NOTE | 2018-10-30 10:35 | Internal Med Progress Note ---
Date of Encounter: 10/30/18 Time of Encounter: 10:33 - Assessment and plan (1) CAD (coronary artery disease) Current Visit: Yes Status: Chronic Assessment and plan: Denies chest pain. Continue current medication. Follow up with Dr. Agrawal, clinical appeals auditor today. Qualifiers: Coronary Disease-Associated Artery/Lesion type: [place] artery [place] vs. transplanted heart: [place] heart Associated angina: angina presence unspecified Qualified Code(s): I25.10 - Atherosclerotic heart disease of [place] coronary artery without angina pectoris (2) COPD (chronic obstructive pulmonary disease) Current Visit: Yes Status: Chronic Assessment and plan: Continue oxygen per nasal cannula. Continue inhaled meds. Monitor O2 sats. St able at this time. Qualifiers: COPD type: unspecified COPD Qualified Code(s): J44.9 - Chronic obstructive pulmonary disease, unspecified (3) Lower gastrointestinal bleed Current Visit: Yes Status: Acute Assessment and plan: Follow up with Anthony as scheduled. Hemoglobin 7.6. Lovenox was discontinued due to this reason. Continue to trend labs. (4) Diabetes Current Visit: Yes Status: Chronic Assessment and plan: Controlled with current medication. Monitor fingerstick blood sugar. Will adjust medicines as necessary. Qualifiers: Diabetes mellitus type: type 2 Diabetes mellitus emt intermediate insulin use: with chcf use Diabetes mellitus complication status: with circulatory complication Diabetes mellitus complication detail: with other circulatory complications Qualified Code(s): E11.59 - Type 2 diabetes mellitus with other circulatory complications; Z79.4 - correction (current) use of insulin (5) Chronic kidney disease (CKD) Current Visit: Yes Status: Chronic Assessment and plan: BUN 33, creatinine 1.46. Will continue to monitor. Avoid nephrotoxic agents. Qualifiers: Chronic kidney disease stage: stage 3 (moderate) Qualified Code(s): N18.3 - Chronic kidney disease, stage 3 (moderate) - Time Spent With Patient less than 15 minutes - Subjective Interval history: She currently sitting on side of bed. Denies shortness of breath or chest pain. Denies fever, chills, nausea vomiting or diarrhea. On O2 at 2 L. States his breathing has been improving. Continues to participate with therapy. Has appointment with Dr. Agrawal today. Lovenox was discontinued due to hemoglobin trending down. Currently 7.6 today. - Constitutional Vitals: Temp Pulse Resp BP Pulse Ox 98.0 F 90 15 108/58 99 10/30/18 07:59 10/30/18 07:59 10/30/18 07:59 10/30/18 07:59 10/30/18 07:59 General appearance: Present: cooperative, A&O X 3, pleasant, no acute distress, answers questions appropriately - Head Head exam: Present: atraumatic, normocephalic - Eye Eye exam: Present: PERRL, conjuntiva pink, sclera anicteric Pupils: Present: PERRL - Neck Neck exam general surgery: Present: supple, trachea midline. Absent: lymphadenopathy - Respiratory Respiratory exam: Present: CTAB. Absent: accessory muscle use, rales, rhonchi, wheezes Additional comments: Diminished bilateral basis - Cardiovascular Cardiovascular exam: Present: RRR, +S1, +S2. Absent: diastolic murmur, gallop, rubs, systolic murmur - GI/Abdominal GI/Abdominal exam: Present: normal bowel sounds, soft, no peritoneal signs. Absent: distended, tenderness - Extremities Exam Extremities exam: Present: warm, radial pulses palpable and symmetrical. Absent: calf tenderness, cyanotic, pedal edema - Neurological Exam Neurological exam: Present: CN II-XII intact, oriented X3, no focal deficits. Absent: pronater drift, facial droop, speech deficit - Skin Skin exam: Present: dry, intact Internal Medicine: Result - Labs CBC & Chem 7: 10/30/18 05:50 10/30/18 05:50 Labs: Short CBC 10/30/18 Range/Units 05:50 WBC 5.9 (4.3-11.1) K/mcL Hgb 7.6 L (12.9-16.9) g/dL Hct 26.2 L (37.5-50.1) % Plt Count 266 (140-400) K/mcL BMP 10/30/18 05:50 Sodium 139 Potassium 5.6 H Chloride 103 Carbon Dioxide 33 H BUN 33 H Creatinine 1.46 H Glucose 130 H Calcium 8.3 L Consult Discharge Plan - Plan Referrals: Kuldip Forrest MD [Primary Care Provider] -
[2018-10-30] MEDS: Albuterol 2.5 MG/3 ML NEBULIZER IH PRN (19:03)
[2018-10-30] MEDS: Latanoprost 2.5 ML BOTTLE BOTH EYES SCH (20:28)
[2018-10-30] MEDS: traZODone 50 MG TABLET PO SCH (22:27)
[2018-10-31 05:46] LABS: Hematocrit 25.8 % (37.5-50.1); Hemoglobin 7.4 g/dL (12.9-16.9); Mean Corpuscular HGB Conc 28.7 g/dL (31.6-35.5); Mean Corpuscular Hemoglobin 24.8 pg (28.0-33.3); Mean Corpuscular Volume 86.6 fL (83.0-100.0); Mean Platelet Volume 9.2 fL (9.4-12.4); Platelet Count 290 K/mcL (140-400); Red Blood Count 2.98 M/mcL (4.19-5.50); Red Cell Distribution Width 18.2 % (11.5-14.5); White Blood Count 6.8 K/mcL (4.3-11.1)
[2018-10-31 06:01] LABS: Calcium 8.4 mg/dL (8.6-10.3); Potassium 5.4 mEq/L (3.5-5.1)
[2018-10-31 06:16] LABS: Thyroid Stimulating Hormone 6.361 mcIU/mL (0.340-5.600)
[2018-10-31] MEDS: Albuterol 2.5 MG/3 ML NEBULIZER IH PRN (06:17)
[2018-10-31] MEDS: Nitroglycerin 0.4 MG TAB.SUBL SL PRN (06:51)
[2018-10-31] MEDS: Insulin LISPRO 300 UNITS/3 ML VIAL SQ SCH (07:42)
[2018-10-31 10:03] VITALS: BP 104/62
--- NOTE | 2018-10-31 10:34 | Event Note ---
Date of Encounter: 10/31/18 Time of Encounter: 10:33 Patient is not seen today because he is at [facility] for follow-up with GI. Just now, the patient transport company called in and let us know that the patient was taken to the emergency room with chest discomfort and anxiety.
[2018-10-31] MEDS: Budesonide/Formoterol 160/4.5 1 PUFF INH IH SCH (11:09)
[2018-10-31] MEDS: Levalbuterol Neb 0.63 MG/3 ML IH SCH (11:09)
[2018-10-31] MEDS: TIOTROPIUM IH SCH (11:09)
--- NOTE | 2018-11-01 14:45 | Discharge Summary ---
Date of Encounter: 11/01/18 Time of Encounter: 14:43 - Discharge Diagnosis (1) CAD (coronary artery disease) Priority: Primary Status: Chronic Qualifiers: Coronary Disease-Associated Artery/Lesion type: [place] artery [place] vs. 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 Guerrero is a 78 year old male, who was transferred to this facility from [facility] where he was treated for respiratory failure, coronary artery disease and evaluated for lower GI bleed. Patient originally presented to [facility] on 09/30/18 with complaints of shortness of breath, which eventually acquired intubation. He was found to have elevated troponins and had a left heart catheter that time which showed severe multivessel disease, to include left main disease. Patient was then transferred to [facility] for further evaluation due to his high risk. [facility] also showed severe left ventricular systolic dysfunction and an EF of 30%. Patient was considered a nonsurgical candidate at [facility] and received 3 coronary stents. His admission was complicated with atrial fibrillation with RVR, which required cardio conversion and the addition of amiodarone to manage his rhythm and rate. Patient remained intubated for a approximate total of 8 days and was extubated, but continues BiPAP at night. Patient was also treated for left lower lobe pneumonia and on CAT scan was found to have a 3 cm left upper lobe nodule. Patient received a bronchoscopy due to hemoptysis, with his current washings results unknown. During his stay at the facility patient was found to have tarry stools and a drop in his hemoglobin. Patient had a colonoscopy which also showed a colon mass at the hepatic flexure. Biopsies were taken with no known results at this time. Patient has a long history of COPD with CHF, CAD, CKD, DM and hypertension. Patient had been participating in physical therapy here at [facility] and was progressing well. Patient reportedly had went to [facility] for follow-up visit and while at the [facility] he developed chest pain and was admitted for further evaluation and treatment at that time. - Time Spent with Patient Total time spent providing and/or coordinating discharge services: - Discharge Medications Prescriptions: No Action Lisinopril [Zestril] 5 mg PO DAILY traZODone [TraZODone] 50 mg PO HS PRN PRN Reason: Sleep Insulin Glargine,Hum.rec.anlog [Lantus Solostar] 10 units SQ QPM Oxygen 4 l NS CONT Potassium Chloride [Klor-Con 10] 10 meq PO DAILY Pantoprazole Sodium [Protonix] 40 mg PO BID Nitroglycerin [Nitrostat] 0.4 mg SL Q5M PRN PRN Reason: Chest Pain Magnesium Oxide [Magnesium] 400 mg PO DAILY Loratadine [Claritin] 10 mg PO DAILY Latanoprost [Xalatan] 1 drop BOTH EYES HS Isosorbide MONOnitrate (24 HR) [Imdur] 60 mg PO DAILY Guaifenesin [Mucinex] 600 mg PO BID PRN PRN Reason: Congestion GlipiZIDE [Glucotrol] 5 mg PO QAM Ferrous Gluconate 324 mg PO DAILY Cholecalciferol (D-3) [Vitamin D] 1,000 unit PO DAILY Budesonide/Formoterol 160/4.5 [Symbicort 160/4.5] 2 puff IH BIDR Atorvastatin Calcium [Lipitor] 40 mg PO QPM Albuterol Neb [Proventil Neb] 2.5 mg IH Q6HR PRN PRN Reason: Shortness Of Breath Buspirone HCl [Buspar] 10 mg PO TID Calcium Carbonate/Vitamin D3 [Calcium 500 + Vit D Caplet] 1 tab PO BID Tiotropium [place] [Spiriva Respimat] 2 puff IH DAILY Albuterol Sulfate [Proventil Inhaler] 2 puff IH Q4H PRN PRN Reason: Shortness Of Breath Insulin DETEMIR [Levemir] 10 unit SQ HS Folic Acid 800 mcg PO DAILY Metoprolol [Lopressor] 25 mg PO BID Home Medications: Insulin Glargine,Hum.rec.anlog [Lantus Solostar] 10 units SQ QPM 05/16/15 [History] Lisinopril [Zestril] 5 mg PO DAILY 05/16/15 [History] traZODone [TraZODone] 50 mg PO HS PRN 05/16/15 [History] Atorvastatin Calcium [Lipitor] 40 mg PO QPM 01/07/17 [History] Budesonide/Formoterol 160/4.5 [Symbicort 160/4.5] 2 puff IH BIDR 01/07/17 [History] Cholecalciferol (D-3) [Vitamin D] 1,000 unit PO DAILY 01/07/17 [History] Ferrous Gluconate 324 mg PO DAILY 01/07/17 [History] GlipiZIDE [Glucotrol] 5 mg PO QAM 01/07/17 [History] Guaifenesin [Mucinex] 600 mg PO BID PRN 01/07/17 [History] Isosorbide MONOnitrate (24 HR) [Imdur] 60 mg PO DAILY 01/07/17 [History] Latanoprost [Xalatan] 1 drop BOTH EYES HS 01/07/17 [History] Loratadine [Claritin] 10 mg PO DAILY 01/07/17 [History] Magnesium Oxide [Magnesium] 400 mg PO DAILY 01/07/17 [History] Nitroglycerin [Nitrostat] 0.4 mg SL Q5M PRN 01/07/17 [History] Oxygen 4 l NS CONT 01/07/17 [History] Pantoprazole Sodium [Protonix] 40 mg PO BID 01/07/17 [History] Potassium Chloride [Klor-Con 10] 10 meq PO DAILY 01/07/17 [History] Albuterol Neb [Proventil Neb] 2.5 mg IH Q6HR PRN 09/26/18 [History] Albuterol Sulfate [Proventil Inhaler] 2 puff IH Q4H PRN 09/26/18 [History] Buspirone HCl [Buspar] 10 mg PO TID 09/26/18 [History] Calcium Carbonate/Vitamin D3 [Calcium 500 + Vit D Caplet] 1 tab PO BID 09/26/18 [History] Tiotropium [place] [Spiriva Respimat] 2 puff IH DAILY 09/26/18 [History] Folic Acid 800 mcg PO DAILY 10/24/18 [History] Insulin DETEMIR [Levemir] 10 unit SQ HS 10/24/18 [History] Metoprolol [Lopressor] 25 mg PO BID 10/24/18 [History] Allergies/Adverse Reactions: Allergy/AdvReac Type Severity Reaction Status Date / Time contrast dye Allergy Hives Uncoded 09/25/18 08:50 Date of admission: 10/24/18 21:53 Primary care physician: Kuldip Forrest MD Consults: 10/24/18 23:13 Consult to Occupational Therapy [CONS] Routine Comment: Eval and Treat Reason for Consult: Eval and Treat Does patient have active BEDREST order?: No Is patient medically & hemodynamically stable?: Yes Patient assessed for mobility or mobilized this visit?: No Consult to Physical Therapy [CONS] Routine Comment: Eval and Treat Reason for Consult: Eval and Treat Does patient have active BEDREST order?: No Is patient medically & hemodynamically stable?: Yes Patient assessed for mobility or mobilized this visit?: No Consult to Recreational Therapy [CONS] Routine Comment: Consult to Real Estate Listing Consultant [CONS] Routine Reason for SW Consult: Discharge Planning Discharging clinician: Andriy Bailey - Constitutional Vitals: Temp Pulse Resp BP Pulse Ox 97.4 F L 103 22 104/62 94 10/31/18 07:00 10/31/18 07:00 10/31/18 07:00 10/31/18 07:00 10/31/18 07:00 General appearance: Present: cooperative, A&O X 3, pleasant, no acute distress, answers questions appropriately - Head Head exam: Present: atraumatic, normocephalic - Eye Eye exam: Present: PERRL, conjuntiva pink, sclera anicteric Pupils: Present: PERRL - Neck Neck exam general surgery: Present: supple, trachea midline. Absent: lymphadenopathy - Respiratory Respiratory exam: Present: decreased breath sounds, CTAB, rales. Absent: accessory muscle use, rhonchi, wheezes - Cardiovascular Cardiovascular exam: Present: RRR, +S1, +S2. Absent: diastolic murmur, gallop, rubs, systolic murmur - GI/Abdominal GI/Abdominal exam: Present: normal bowel sounds, soft, no peritoneal signs. Absent: distended, tenderness - Extremities Exam Extremities exam: Present: warm, radial pulses palpable and symmetrical. Absent: calf tenderness, cyanotic, pedal edema - Neurological Exam Neurological exam: Present: CN II-XII intact, oriented X3, no focal deficits. Absent: pronater drift, facial droop, speech deficit - Skin Skin exam: Present: dry, intact - Patient Status Disposition: Admitted As Inpatient Condition: Fair Functional capacity at discharge: uses cane/walker Overall status at discharge: patient is progressing back to baseline - Discharge Instructions Follow Up With: Kuldip Forrest MD [Primary Care Provider] - - Diet and Activity Activity: ambulate only with your walker, as per the cardiac rehab, as per physical therapy Diet: diabetic diet, low fat, low cholesterol, low salt diet
== END 2018-10-31 18:52 | disposition other institution (70) | DRG 302 ==
LOC: INPGRE 21:53

== ENCOUNTER 2018-11-06 12:20 | Inpatient (IN) ==
[2018-11-06] MEDS ORDERED: Dextrose Gel 15 GM/37.5 ML TUBE PO PRN ×2 (13:16)
[2018-11-06] MEDS ORDERED: *HR* Dextrose 50 % in Water (Syg) 50 ML SYRINGE IVP PRN (13:16)
[2018-11-06] MEDS ORDERED: D5% in Water 1,000 ML IVC PRN (13:16)
[2018-11-06] MEDS ORDERED: Acetaminophen 325 MG TABLET PO PRN (13:17)
[2018-11-06] MEDS ORDERED: Ondansetron ODT 4 MG TAB.RAPDIS SL PRN (13:17)
[2018-11-06] MEDS ORDERED: Mag Hydrox/Al Hydrox/Simeth 30 ML UDC PO PRN (13:18)
[2018-11-06] MEDS ORDERED: Nitroglycerin 0.4 MG TAB.SUBL SL PRN (13:49)
[2018-11-06] MEDS: Albuterol 2.5 MG/3 ML NEBULIZER IH PRN ×2 (16:35→22:27)
[2018-11-06] MEDS: Metoprolol XL (24 HR) Succ 25 MG TAB.ER.24H PO SCH (16:38)
[2018-11-06] MEDS: Furosemide 40 MG TABLET PO SCH (16:38)
[2018-11-06] MEDS: Insulin LISPRO 300 UNITS/3 ML VIAL SQ SCH ×2 (16:39→20:33)
[2018-11-06] MEDS: *HR* Metformin 500 MG TABLET PO SCH (20:31)
[2018-11-06] MEDS: Latanoprost 2.5 ML BOTTLE BOTH EYES SCH (20:33)
[2018-11-06] MEDS ORDERED: Insulin DETEMIR 100 UNIT/ML X5UNITS SQ SCH (21:00)
[2018-11-06] MEDS: traZODone 50 MG TABLET PO PRN (22:45)
[2018-11-07] MEDS ORDERED: Insulin DETEMIR 100 UNIT/ML per UNIT SQ ONE (00:15)
[2018-11-07] MEDS: Metoprolol XL (24 HR) Succ 25 MG TAB.ER.24H PO SCH ×2 (04:35→17:36)
[2018-11-07 06:04] LABS: Basophils % 0.2 %; Eosinophils # 0.1 K/mcL (0.0-0.6); Eosinophils % 1.2 %; Hematocrit 26.7 % (37.5-50.1); Hemoglobin 7.8 g/dL (12.9-16.9); Immature Granulocytes % 0.6 % (0-4); Lymphocytes # 1.2 K/mcL (0.6-4.6); Lymphocytes % 18.3 %; Mean Corpuscular HGB Conc 29.2 g/dL (31.6-35.5); Mean Corpuscular Hemoglobin 24.6 pg (28.0-33.3); Mean Corpuscular Volume 84.2 fL (83.0-100.0); Mean Platelet Volume 9.4 fL (9.4-12.4); Monocytes # 0.5 K/mcL (0.0-1.3); Monocytes % 7.6 %; Neutrophils # 4.7 K/mcL (1.6-8.9); Platelet Count 250 K/mcL (140-400); Red Blood Count 3.17 M/mcL (4.19-5.50); Red Cell Distribution Width 17.4 % (11.5-14.5); Segmented Neutrophils % 72.1 %; White Blood Count 6.5 K/mcL (4.3-11.1)
[2018-11-07 06:17] LABS: Albumin 3.3 g/dL (3.5-5.7); Albumin/Globulin Ratio 1.2 (1.1-2.2); Bilirubin,Total 0.3 mg/dL (0.3-1.0); Calcium 8.7 mg/dL (8.6-10.3); Globulin 2.7 g/dL (2.4-3.5); Magnesium 1.5 mg/dL (1.6-2.6); Potassium 4.6 mEq/L (3.5-5.1)
[2018-11-07] MEDS: Albuterol 2.5 MG/3 ML NEBULIZER IH PRN ×3 (06:51→21:33)
[2018-11-07] MEDS: Insulin LISPRO 300 UNITS/3 ML VIAL SQ SCH ×4 (07:45→21:14)
[2018-11-07] MEDS: Furosemide 40 MG TABLET PO SCH ×2 (08:02→17:37)
[2018-11-07] MEDS: (Roflumilast [Daliresp] 500 MCG) PO SCH (08:05)
[2018-11-07] MEDS: *HR* Amiodarone 200 MG TABLET PO SCH (08:06)
[2018-11-07] MEDS: Loratadine 10 MG TABLET PO SCH (08:06)
[2018-11-07] MEDS: Isosorbide MONOnitrate (24 HR) 60 MG TAB.ER.24H PO SCH (08:06)
[2018-11-07] MEDS: Magnesium Oxide 400 MG TABLET PO SCH (08:06)
[2018-11-07] MEDS: Cholecalciferol (D-3) 1,000 UNIT (25MCG) TABLET PO SCH (08:06)
[2018-11-07] MEDS: GlipiZIDE 5 MG TABLET PO SCH (08:07)
[2018-11-07] MEDS: Folic Acid 1 MG TABLET PO SCH (08:07)
[2018-11-07] MEDS: Aspirin 81 MG TAB.CHEW PO SCH (08:07)
--- NOTE | 2018-11-07 09:40 | Internal Med History&Physical ---
Date of Encounter: 11/07/18 Time of Encounter: 09:30 Assessment and Plan (1) CAD (coronary artery disease) Current visit: Yes Status: Chronic Stable. Denies chest pain. Continue aspirin 81 mg. Qualifiers: Coronary Disease-Associated Artery/Lesion type: [place] artery [place] vs. transplanted heart: [place] heart Associated angina: angina presence unspecified Qualified Code(s): I25.10 - Atherosclerotic heart disease of [place] coronary artery without angina pectoris (2) HFrEF (heart failure with reduced ejection fraction) Current visit: Yes Status: Acute Stable. Ejection fraction 30%. Continue Lasix. Monitor daily weights, low- sodium diet. Monitor for decompensation. Will follow labs. Qualifiers: Heart failure chronicity: acute Qualified Code(s): I50.21 - Acute systolic (congestive) heart failure (3) COPD (chronic obstructive pulmonary disease) Current visit: Yes Status: Chronic Continue O2 per nasal cannula. Stable with inhaled meds. Monitor. Qualifiers: COPD type: unspecified COPD Qualified Code(s): J44.9 - Chronic obstructive pulmonary disease, unspecified (4) Atrial fibrillation Current visit: Yes Status: Chronic Rate and rhythm stable. Continue cortisone and aspirin 81 mg not on any other anticoagulants due to anemia. Qualifiers: Atrial fibrillation type: unspecified Qualified Code(s): I48.91 - Unspecified atrial fibrillation (5) Diabetes Current visit: Yes Status: Chronic Controlled with current medication. Monitor fingerstick blood sugar. Insulin per sliding scale. 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 hgb stable. 7.8. f/u with colon/rectal surgery as scheduled. Qualifiers: Anemia type: unspecified type Qualified Code(s): D64.9 - Anemia, unspecified Internal Medicine - H&P: HPI Admitted From: Hospital to Hospital Transfer Plans for Post Hospital Care: Home History of present illness: Mr. Guerrero is a 78 year old male re-admission to rehab after admission to [facility]. Was recently a patient that was transported for a follow up appointment to [facility] with Colon and Rectal surgery. when he arrived he had complaints of chest pain and SOB. He was transfered to [facility] ER. lasix was given for CHF and he was admitted to [facility]. Has history of heart failure with ejection fraction 30%, CAD, hypertension, COPD, chronic respiratory failure. Has chronic oxygen at 4 L per nasal cannula, obstructive sleep apnea unawares BiPAP and diabetes. Had a prolonged admission at [facility] from 6\15 to 7\9 with an instantly and acute respiratory failure requiring mechanical ventilation. Recent heart Showed severe left main stenosis, patent LAD and LCx stents. had EGD and colonoscopy with a large hepatic flexure mass with puntuate bleeding and several polyps. mass was biopsied and showed a TVAapproaching high grade dysplasia. Currently ambulating in hallway with therapy with walker. maintianing O2 sat >95% with O2 per NC. denies SOB, chest pain, fever, chills, NVD. maintianing appetite and hydration. last BM was this am. not on anticoagulant due to anemia. hgb 7.8 this am. Past Med Surg Social Fam HX - Past Medical History Medical history: CHF, COPD, diabetes, hypertension, myocardial infarction, other Additional medical history: pulmonary nodles, renal cysts, pneumonia, oxygen use Psychiatric history: no psych history - Past Surgical History Surgical History: angioplasty/stent, herniorrhaphy, other Additional surgical history: LHC, betsey cataracts - Social History Smoking Status: Former smoker Smokeless Tobacco Status: No Alcohol use: none Drug use: none Internal Medicine - H&P: Meds Insulin Glargine,Hum.rec.anlog [Lantus Solostar] 10 units SQ QPM 05/16/15 [History] Lisinopril [Zestril] 2.5 mg PO Q12HR 05/16/15 [History] traZODone [TraZODone] 50 mg PO HS PRN 05/16/15 [History] Atorvastatin Calcium [Lipitor] 80 mg PO QPM 01/07/17 [History] Cholecalciferol (D-3) [Vitamin D] 1,000 unit PO DAILY 01/07/17 [History] Ferrous Gluconate 324 mg PO DAILY 01/07/17 [History] GlipiZIDE [Glucotrol] 2.5 mg PO DAILY 01/07/17 [History] Guaifenesin [Mucinex] 600 mg PO BID PRN 01/07/17 [History] Isosorbide MONOnitrate (24 HR) [Imdur] 60 mg PO DAILY 01/07/17 [History] Latanoprost [Xalatan] 1 drop BOTH EYES HS 01/07/17 [History] Loratadine [Claritin] 10 mg PO DAILY 01/07/17 [History] Magnesium Oxide [Magnesium] 400 mg PO DAILY 01/07/17 [History] Nitroglycerin [Nitrostat] 0.4 mg SL Q5M PRN 01/07/17 [History] Oxygen 4 l NS CONT 01/07/17 [History] Pantoprazole Sodium [Protonix] 40 mg PO BID 01/07/17 [History] Potassium Chloride [Klor-Con 10] 10 meq PO DAILY 01/07/17 [History] Albuterol Neb [Proventil Neb] 2.5 mg IH Q6HR PRN 09/26/18 [History] Buspirone HCl [Buspar] 10 mg PO BID 09/26/18 [History] Calcium Carbonate/Vitamin D3 [Calcium 500 + Vit D Caplet] 1 tab PO DAILY 09/26/18 [History] Tiotropium [place] [Spiriva Respimat] 2 puff IH DAILY 09/26/18 [History] Folic Acid 800 mcg PO DAILY 10/24/18 [History] Amiodarone [Cordarone] 200 mg PO DAILY 11/06/18 [History] Aspirin 81 mg PO DAILY 11/06/18 [History] Furosemide [Lasix] 40 mg PO BID 11/06/18 [History] Roflumilast [Daliresp] 500 mcg PO DAILY 11/06/18 [History] Allergy/AdvReac Type Severity Reaction Status Date / Time contrast dye Allergy Hives Uncoded 09/25/18 08:50 All Systems PM: A 10-system review of systems was performed and is negative for pertinent findings except as documented above in the HPI. Review of systems: normal unless otherwise stated in HPI - Constitutional Vitals: Temp Pulse Resp BP Pulse Ox 97.9 F 76 16 95/55 99 11/07/18 07:34 11/07/18 07:34 11/07/18 07:34 11/07/18 07:34 11/07/18 07:34 General appearance: Present: cooperative, A&O X 3, pleasant, no acute distress, obese, answers questions appropriately - Head Head exam: Present: atraumatic, normocephalic - Eye Eye exam: Present: PERRL, conjuntiva pink, sclera anicteric Pupils: Present: PERRL - Neck Neck exam general surgery: Present: supple, trachea midline. Absent: lymphadenopathy - Respiratory Respiratory exam: Present: CTAB. Absent: accessory muscle use, rales, rhonchi, wheezes - Cardiovascular Cardiovascular exam: Present: RRR, +S1, +S2. Absent: diastolic murmur, gallop, rubs, systolic murmur - GI/Abdominal GI/Abdominal exam: Present: normal bowel sounds, soft, no peritoneal signs. Absent: distended, tenderness - Extremities Exam Extremities exam: Present: warm, radial pulses palpable and symmetrical. Absent: calf tenderness, cyanotic, pedal edema - Neurological Exam Neurological exam: Present: CN II-XII intact, oriented X3, no focal deficits. Absent: pronater drift, facial droop, speech deficit - Skin Skin exam: Present: dry, intact Internal Med - H&P Results - Labs CBC & Chem 7: 11/07/18 05:35 11/07/18 05:35 Labs: Short CBC 11/07/18 Range/Units 05:35 WBC 6.5 (4.3-11.1) K/mcL Hgb 7.8 L (12.9-16.9) g/dL Hct 26.7 L (37.5-50.1) % Plt Count 250 (140-400) K/mcL Neutrophils # 4.7 (1.6-8.9) K/mcL BMP 11/07/18 05:35 Sodium 139 Potassium 4.6 Chloride 101 Carbon Dioxide 33 H BUN 33 H Creatinine 1.73 H Glucose 114 H Calcium 8.7 Liver Function 11/07/18 Range/Units 05:35 Total Bilirubin 0.3 (0.3-1.0) mg/dL AST 15 (13-39) Units/L ALT 17 (7-52) Units/L Alkaline Phosphatase 51 (34-104) Units/L Albumin 3.3 L (3.5-5.7) g/dL - VTE Documentation of Mechanical Device: Graduated compression elastic hosiery
[2018-11-07] MEDS: Budesonide/Formoterol 160/4.5 1 PUFF INH IH SCH ×2 (10:19→21:33)
[2018-11-07] MEDS: (Tiotropium Bromide [Spiriva Respimat] 2 PUFF) IH SCH (10:26)
[2018-11-07] MEDS: *HR* Metformin 500 MG TABLET PO SCH (21:18)
[2018-11-07] MEDS: Insulin DETEMIR 100 UNIT/ML per UNIT SQ SCH (21:19)
[2018-11-07] MEDS: Latanoprost 2.5 ML BOTTLE BOTH EYES SCH (21:21)
[2018-11-07] MEDS: traZODone 50 MG TABLET PO PRN (22:46)
[2018-11-08] MEDS: Metoprolol XL (24 HR) Succ 25 MG TAB.ER.24H PO SCH ×2 (05:26→17:05)
[2018-11-08] MEDS: Insulin LISPRO 300 UNITS/3 ML VIAL SQ SCH ×4 (08:20→20:20)
[2018-11-08] MEDS: Isosorbide MONOnitrate (24 HR) 60 MG TAB.ER.24H PO SCH (08:28)
[2018-11-08] MEDS: GlipiZIDE 5 MG TABLET PO SCH (08:28)
[2018-11-08] MEDS: Cholecalciferol (D-3) 1,000 UNIT (25MCG) TABLET PO SCH (08:29)
[2018-11-08] MEDS: Loratadine 10 MG TABLET PO SCH (08:29)
[2018-11-08] MEDS: Magnesium Oxide 400 MG TABLET PO SCH (08:29)
[2018-11-08] MEDS: *HR* Amiodarone 200 MG TABLET PO SCH (08:29)
[2018-11-08] MEDS: Aspirin 81 MG TAB.CHEW PO SCH (08:29)
[2018-11-08] MEDS: Furosemide 40 MG TABLET PO SCH ×2 (08:29→17:01)
[2018-11-08] MEDS: Folic Acid 1 MG TABLET PO SCH (08:29)
[2018-11-08] MEDS: (Roflumilast [Daliresp] 500 MCG) PO SCH (08:37)
[2018-11-08] MEDS: Albuterol 2.5 MG/3 ML NEBULIZER IH PRN ×2 (09:56→20:22)
[2018-11-08] MEDS: Budesonide/Formoterol 160/4.5 1 PUFF INH IH SCH ×2 (09:56→20:21)
--- NOTE | 2018-11-08 10:13 | Internal Med Progress Note ---
Date of Encounter: 11/08/18 Time of Encounter: 10:11 - Assessment and plan (1) HFrEF (heart failure with reduced ejection fraction) Current Visit: Yes Status: Chronic Assessment and plan: Patient appears to be doing well. Dissipating and therapy with no complaints of dyspnea. Patient continues with fine expiratory rales heard. We will continue with current medications. We will monitor patient's daily weights and fluid int kelly. We will continue with current therapy and current medications. Qualifiers: Heart failure chronicity: acute Qualified Code(s): I50.21 - Acute systolic (congestive) heart failure (2) Anemia Current Visit: Yes Status: Chronic Assessment and plan: No acute issues. Patient's last hemoglobin was 7.8. Currently patient is asymptomatic. We will continue to monitor with serial labs. No signs of active bleeding noted Qualifiers: Anemia type: unspecified type Qualified Code(s): D64.9 - Anemia, unspecified (3) Atrial fibrillation Current Visit: Yes Status: Chronic Assessment and plan: No acute issues. Patient's heart rate remains well controlled with ventricular rate less than 100. Patient denies any palpitations or chest discomforts. Qualifiers: Atrial fibrillation type: unspecified Qualified Code(s): I48.91 - Unspecified atrial fibrillation (4) CAD (coronary artery disease) Current Visit: Yes Status: Chronic Assessment and plan: No acute issues. Patient denies any chest discomfort or palpitations. We will continue with current medications. Qualifiers: Coronary Disease-Associated Artery/Lesion type: [place] artery [place] vs. transplanted heart: [place] heart Associated angina: angina presence unspecified Qualified Code(s): I25.10 - Atherosclerotic heart disease of [place] coronary artery without angina pectoris (5) COPD (chronic obstructive pulmonary disease) Current Visit: Yes Status: Chronic Assessment and plan: No acute issues. Patient continues with dyspnea with exertion but appears to be tolerating therapy well today. Continues with fine basilar rales. Respiratory effort appears relaxed. Patient endorses orthopnea. We will continue with current bronchodilators and medications. Qualifiers: COPD type: unspecified COPD Qualified Code(s): J44.9 - Chronic obstructive pulmonary disease, unspecified (6) Diabetes Current Visit: Yes Status: Chronic Assessment and plan: Patients glucose appears fairly well-controlled with most readings on fin gersticks less than 200. 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 Patient states that his breathing feels good today and denied any acute changes during this therapy. Patient continues to endorse orthopnea. Denies a ny chest palpitations or dizziness. - Constitutional Vitals: Temp Pulse Resp BP Pulse Ox 98.5 F 88 17 116/62 99 11/08/18 07:00 11/08/18 08:28 11/08/18 09:56 11/08/18 08:28 11/08/18 09:56 General appearance: Present: cooperative, A&O X 3, pleasant, no acute distress, obese, answers questions appropriately - Head Head exam: Present: atraumatic, normocephalic - Eye Eye exam: Present: PERRL, conjuntiva pink, sclera anicteric Pupils: Present: PERRL - Neck Neck exam general surgery: Present: supple, trachea midline. Absent: lymphadenopathy - Respiratory Respiratory exam: Present: CTAB, rales. Absent: accessory muscle use, rhonchi, wheezes Additional comments: Lungs are clear throughout [place] with fine basilar rales posteriorly. Respiratory effort appears relaxed. No productive cough noted. Patient continues with supplemental oxygen - Cardiovascular Cardiovascular exam: Present: RRR, +S1, +S2, systolic murmur. Absent: diastolic murmur, gallop, rubs Additional comments: systolic murmur 3/6 LSB - GI/Abdominal GI/Abdominal exam: Present: normal bowel sounds, soft, no peritoneal signs. Absent: distended, tenderness - Extremities Exam Extremities exam: Present: pedal edema, warm, radial pulses palpable and symmetrical. Absent: calf tenderness, cyanotic Additional comments: slight nonpitting pedal edema - Neurological Exam Neurological exam: Present: CN II-XII intact, oriented X3, no focal deficits. Absent: pronater drift, facial droop, speech deficit - Skin Skin exam: Present: dry, intact Internal Medicine: Result - Labs CBC & Chem 7: 11/07/18 05:35 11/07/18 05:35 - VTE Documentation of Mechanical Device: Graduated compression elastic hosiery Consult Discharge Plan - Plan Referrals: Kuldip Forrest MD [Primary Care Provider] -
[2018-11-08] MEDS: (Tiotropium Bromide [Spiriva Respimat] 2 PUFF) IH SCH ×2 (10:28→10:43)
[2018-11-08] MEDS: *HR* Metformin 500 MG TABLET PO SCH (20:19)
[2018-11-08] MEDS: Insulin DETEMIR 100 UNIT/ML per UNIT SQ SCH (20:20)
[2018-11-08] MEDS: Latanoprost 2.5 ML BOTTLE BOTH EYES SCH (20:21)
[2018-11-08] MEDS: traZODone 50 MG TABLET PO PRN (23:03)
[2018-11-09] MEDS: Furosemide 40 MG TABLET PO SCH ×2 (06:11→16:59)
[2018-11-09] MEDS: Metoprolol XL (24 HR) Succ 25 MG TAB.ER.24H PO SCH ×2 (06:11→17:00)
[2018-11-09] MEDS: Isosorbide MONOnitrate (24 HR) 60 MG TAB.ER.24H PO SCH (09:01)
[2018-11-09] MEDS: Magnesium Oxide 400 MG TABLET PO SCH (09:01)
[2018-11-09] MEDS: Aspirin 81 MG TAB.CHEW PO SCH (09:01)
[2018-11-09] MEDS: *HR* Amiodarone 200 MG TABLET PO SCH (09:01)
[2018-11-09] MEDS: Cholecalciferol (D-3) 1,000 UNIT (25MCG) TABLET PO SCH (09:01)
[2018-11-09] MEDS: Folic Acid 1 MG TABLET PO SCH (09:01)
[2018-11-09] MEDS: GlipiZIDE 5 MG TABLET PO SCH (09:01)
[2018-11-09] MEDS: Loratadine 10 MG TABLET PO SCH (09:01)
[2018-11-09] MEDS: Insulin LISPRO 300 UNITS/3 ML VIAL SQ SCH ×4 (09:19→21:12)
[2018-11-09 09:39] LABS: Basophils % 0.5 %; Eosinophils # 0.1 K/mcL (0.0-0.6); Eosinophils % 1.4 %; Hematocrit 26.3 % (37.5-50.1); Hemoglobin 7.7 g/dL (12.9-16.9); Immature Granulocytes % 0.5 % (0-4); Lymphocytes # 1.1 K/mcL (0.6-4.6); Lymphocytes % 16.4 %; Mean Corpuscular HGB Conc 29.3 g/dL (31.6-35.5); Mean Corpuscular Volume 85.4 fL (83.0-100.0); Mean Platelet Volume 9.1 fL (9.4-12.4); Monocytes # 0.5 K/mcL (0.0-1.3); Monocytes % 6.9 %; Platelet Count 214 K/mcL (140-400); Red Blood Count 3.08 M/mcL (4.19-5.50); Red Cell Distribution Width 17.6 % (11.5-14.5); Segmented Neutrophils % 74.3 %; White Blood Count 6.7 K/mcL (4.3-11.1)
--- NOTE | 2018-11-09 10:52 | Internal Med Progress Note ---
Date of Encounter: 11/09/18 Time of Encounter: 10:50 - Assessment and plan (1) HFrEF (heart failure with reduced ejection fraction) Current Visit: Yes Status: Chronic Assessment and plan: Patient appears to be doing well. Participating with therapy with no complaints of dyspnea. Patient continues with fine expiratory rales heard. We will continue with current medications. We will monitor patient's daily weights and fluid intake. We will continue with current therapy and current medications. Qualifiers: Heart failure chronicity: acute Qualified Code(s): I50.21 - Acute systolic (congestive) heart failure (2) Anemia Current Visit: Yes Status: Chronic Assessment and plan: No acute issues. Patient's last hemoglobin todayu was 7.7. Currently patient is asymptomatic. Continued blood loss through lower GI due to colon mass. VSS. Qualifiers: Anemia type: unspecified type Qualified Code(s): D64.9 - Anemia, u nspecified (3) Atrial fibrillation Current Visit: Yes Status: Chronic Assessment and plan: No acute issues. Patient's heart rate remains well controlled with ventricular rate less than 100. Patient denies any palpitations or chest discomforts. Qualifiers: Atrial fibrillation type: unspecified Qualified Code(s): I48.91 - Unspecified atrial fibrillation (4) CAD (coronary artery disease) Current Visit: Yes Status: Chronic Assessment and plan: No acute issues. Patient denies any chest discomfort or palpitations. We will continue with current medications. Qualifiers: Coronary Disease-Associated Artery/Lesion type: [place] artery [place] vs. transplanted heart: [place] heart Associated angina: angina presence unspecified Qualified Code(s): I25.10 - Atherosclerotic heart disease of [place] coronary artery without angina pectoris (5) COPD (chronic obstructive pulmonary disease) Current Visit: Yes Status: Chronic Assessment and plan: No acute issues. Patient continues with dyspnea with exertion but appears to be tolerating therapy well today. Continues with fine basilar rales. Respiratory effort appears relaxed. Patient endorses orthopnea. We will continue with current bronchodilators and medications. Qualifiers: COPD type: unspecified COPD Qualified Code(s): J44.9 - Chronic obstructive pulmonary disease, unspecified (6) Diabetes Current Visit: Yes Status: Chronic Assessment and plan: Patients glucose appears fairly well-controlled with most readings on fingersticks less than 200. 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 Patient states that his breathing feels good today and denied any acute changes during this therapy. Patient continues to endorse orthopnea. Denies any chest palpitations or dizziness. Patient being prepared for possible discharge in the morning. - Constitutional Vitals: Temp Pulse Resp BP Pulse Ox 97.6 F 79 17 99/55 98 11/09/18 08:40 11/09/18 08:40 11/09/18 08:40 11/09/18 08:40 11/09/18 08:40 General appearance: Present: cooperative, A&O X 3, pleasant, no acute distress, obese, answers questions appropriately - Head Head exam: Present: atraumatic, normocephalic - Eye Eye exam: Present: PERRL, conjuntiva pink, sclera anicteric Pupils: Present: PERRL - Neck Neck exam general surgery: Present: supple, trachea midline. Absent: lymphadenopathy - Respiratory Respiratory exam: Present: decreased breath sounds, CTAB, rales. Absent: accessory muscle use, rhonchi, wheezes Additional comments: Lungs are clear throughout [place] but noted continued fine basilar rales heard posteriorly. Respiratory of her appears relaxed while at rest. No produ ctive cough noted. - Cardiovascular Cardiovascular exam: Present: irregular rhythm, RRR, +S1, +S2, systolic murmur. Absent: diastolic murmur, gallop, rubs - GI/Abdominal GI/Abdominal exam: Present: normal bowel sounds, soft, no peritoneal signs. Absent: distended, tenderness Additional comments: Abdomen appears slightly distended but is soft and nontender. Patient denies any abdominal cramping or nausea. - Extremities Exam Extremities exam: Present: warm, radial pulses palpable and symmetrical. Absent: calf tenderness, cyanotic, pedal edema - Neurological Exam Neurological exam: Present: CN II-XII intact, oriented X3, no focal deficits. Absent: pronater drift, facial droop, speech deficit - Skin Skin exam: Present: dry, intact Internal Medicine: Result - Labs CBC & Chem 7: 11/09/18 09:25 11/07/18 05:35 Labs: Short CBC 11/09/18 Range/Units 09:25 WBC 6.7 (4.3-11.1) K/mcL Hgb 7.7 L (12.9-16.9) g/dL Hct 26.3 L (37.5-50.1) % Plt Count 214 (140-400) K/mcL Neutrophils # 5.0 (1.6-8.9) K/mcL - VTE Documentation of Mechanical Device: Graduated compression elastic hosiery Consult Discharge Plan - Plan Referrals: Kuldip Forrest MD [Primary Care Provider] -
[2018-11-09] MEDS: Budesonide/Formoterol 160/4.5 1 PUFF INH IH SCH ×2 (11:01→18:40)
[2018-11-09] MEDS: (Tiotropium Bromide [Spiriva Respimat] 2 PUFF) IH SCH (11:03)
[2018-11-09] MEDS: (Roflumilast [Daliresp] 500 MCG) PO SCH (13:45)
[2018-11-09] MEDS: *HR* Metformin 500 MG TABLET PO SCH (21:31)
[2018-11-09] MEDS: Insulin DETEMIR 100 UNIT/ML per UNIT SQ SCH (21:32)
[2018-11-09] MEDS: traZODone 50 MG TABLET PO PRN (21:40)
[2018-11-09] MEDS: Latanoprost 2.5 ML BOTTLE BOTH EYES SCH (21:45)
[2018-11-09] MEDS: Albuterol 2.5 MG/3 ML NEBULIZER IH PRN (22:06)
[2018-11-10] MEDS: Metoprolol XL (24 HR) Succ 25 MG TAB.ER.24H PO SCH (06:42)
[2018-11-10] MEDS: Albuterol 2.5 MG/3 ML NEBULIZER IH PRN (06:45)
[2018-11-10 07:32] VITALS: BP 98/60
[2018-11-10] MEDS: Insulin LISPRO 300 UNITS/3 ML VIAL SQ SCH ×2 (08:22→11:49)
[2018-11-10] MEDS: Folic Acid 1 MG TABLET PO SCH (08:23)
[2018-11-10] MEDS: Isosorbide MONOnitrate (24 HR) 60 MG TAB.ER.24H PO SCH (08:23)
[2018-11-10] MEDS: *HR* Amiodarone 200 MG TABLET PO SCH (08:23)
[2018-11-10] MEDS: Cholecalciferol (D-3) 1,000 UNIT (25MCG) TABLET PO SCH (08:23)
[2018-11-10] MEDS: Loratadine 10 MG TABLET PO SCH (08:23)
[2018-11-10] MEDS: GlipiZIDE 5 MG TABLET PO SCH (08:23)
[2018-11-10] MEDS: Furosemide 40 MG TABLET PO SCH (08:23)
[2018-11-10] MEDS: Magnesium Oxide 400 MG TABLET PO SCH (08:24)
[2018-11-10] MEDS: Aspirin 81 MG TAB.CHEW PO SCH (08:24)
[2018-11-10] MEDS: (Roflumilast [Daliresp] 500 MCG) PO SCH (08:24)
--- NOTE | 2018-11-10 09:44 | Discharge Summary ---
Orders not resulted at time of discharge: Pending orders 11/13/18 04:00 CMP [Comprehensive Metabolic Panel] MO Complete Blood Count [HEME] MO 11/20/18 04:00 CMP [Comprehensive Metabolic Panel] MO Complete Blood Count [HEME] MO Date of Encounter: 11/10/18 Time of Encounter: 09:42 - Discharge Diagnosis (1) CAD (coronary artery disease) Priority: Primary Status: Chronic Comments: Stable. Denies chest pain. Follow up with PCP and pyrometallurgical engineer. Qualifiers: Coronary Disease-Associated Artery/Lesion type: [place] artery [place] vs. transplanted heart: [place] heart Associated angina: angina presence unspecified Qualified Code(s): I25.10 - Atherosclerotic heart disease of [place] coronary artery without angina pectoris (2) HFrEF (heart failure with reduced ejection fraction) Priority: Secondary Status: Chronic Comments: Continue current medication. Stable. Follow up with pyrometallurgical engineer as scheduled. Qualifiers: Heart failure chronicity: acute on chronic Qualified Code(s): I50.23 - Acute on chronic systolic (congestive) heart failure (3) COPD (chronic obstructive pulmonary disease) Priority: Secondary Status: Chronic Comments: Stable. Continue continue current medication. Continue oxygen per nasal cannula. Qualifiers: COPD type: unspecified COPD Qualified Code(s): J44.9 - Chronic obstructive pulmonary disease, unspecified (4) Atrial fibrillation Priority: Secondary Status: Chronic Comments: Rate and rhythm controlled. Continue current medication. Not on ant icoagulation due to G.I. bleed. Hemoglobin 7.7. Follow up with pyrometallurgical engineer as scheduled. Qualifiers: Atrial fibrillation type: unspecified Qualified Code(s): I48.91 - Unspecified atrial fibrillation (5) Diabetes Priority: Secondary Status: Chronic Comments: Controlled with current medication. 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 Continue to monitor. Follow up with G.I. as scheduled. Qualifiers: Anemia type: unspecified type Qualified Code(s): D64.9 - Anemia, unspecified Hospital course: Mr. Guerrero is a 78 year old male discharging to [facility]. ambulating with walker. wears chronic O2. follow up with GI and cradiologist as scheduled. last hgb 7.7. stable. for this reason, not on any anticoagulants. Discharge discussed with: patient, family, nurse, social work - Time Spent with Patient Total time spent providing and/or coordinating discharge services: Time spent: Less than 30 minutes - Discharge Medications Prescriptions: No Action Lisinopril [Zestril] 2.5 mg PO Q12HR traZODone [TraZODone] 50 mg PO HS PRN PRN Reason: Sleep Insulin Glargine,Hum.rec.anlog [Lantus Solostar] 10 units SQ QPM Oxygen 4 l NS CONT Potassium Chloride [Klor-Con 10] 10 meq PO DAILY Pantoprazole Sodium [Protonix] 40 mg PO BID Nitroglycerin [Nitrostat] 0.4 mg SL Q5M PRN PRN Reason: Chest Pain Magnesium Oxide [Magnesium] 400 mg PO DAILY Loratadine [Claritin] 10 mg PO DAILY Latanoprost [Xalatan] 1 drop BOTH EYES HS Isosorbide MONOnitrate (24 HR) [Imdur] 60 mg PO DAILY Guaifenesin [Mucinex] 600 mg PO BID PRN PRN Reason: Congestion GlipiZIDE [Glucotrol] 2.5 mg PO DAILY Ferrous Gluconate 324 mg PO DAILY Cholecalciferol (D-3) [Vitamin D] 1,000 unit PO DAILY Atorvastatin Calcium [Lipitor] 80 mg PO QPM Albuterol Neb [Proventil Neb] 2.5 mg IH Q6HR PRN PRN Reason: Shortness Of Breath Buspirone HCl [Buspar] 10 mg PO BID Calcium Carbonate/Vitamin D3 [Calcium 500 + Vit D Caplet] 1 tab PO DAILY Tiotropium [place] [Spiriva Respimat] 2 puff IH DAILY Folic Acid 800 mcg PO DAILY Roflumilast [Daliresp] 500 mcg PO DAILY Aspirin 81 mg PO DAILY Amiodarone [Cordarone] 200 mg PO DAILY Furosemide [Lasix] 40 mg PO BID Home Medications: traZODone [TraZODone] 50 mg PO HS PRN 05/16/15 [History] Atorvastatin Calcium [Lipitor] 80 mg PO QPM 09/22/17 [History] Cholecalciferol (D-3) [Vitamin D] 1,000 unit PO DAILY 01/07/17 [History] Ferrous Gluconate 324 mg PO DAILY 01/07/17 [History] GlipiZIDE [Glucotrol] 2.5 mg PO DAILY 01/07/17 [History] Guaifenesin [Mucinex] 600 mg PO BID PRN 01/07/17 [History] Isosorbide MONOnitrate (24 HR) [Imdur] 60 mg PO DAILY 01/07/17 [History] Latanoprost [Xalatan] 1 drop BOTH EYES HS 01/07/17 [History] Loratadine [Claritin] 10 mg PO DAILY 01/07/17 [History] Magnesium Oxide [Magnesium] 400 mg PO DAILY 01/07/17 [History] Nitroglycerin [Nitrostat] 0.4 mg SL Q5M PRN 01/07/17 [History] Oxygen 4 l NS CONT 01/07/17 [History] Pantoprazole Sodium [Protonix] 40 mg PO BID 01/07/17 [History] Potassium Chloride [Klor-Con 10] 10 meq PO DAILY 01/07/17 [History] Albuterol Neb [Proventil Neb] 2.5 mg IH Q6HR PRN 09/26/18 [History] Buspirone HCl [Buspar] 10 mg PO BID 09/26/18 [History] Calcium Carbonate/Vitamin D3 [Calcium 500 + Vit D Caplet] 1 tab PO DAILY 09/26/18 [History] Tiotropium [place] [Spiriva Respimat] 2 puff IH DAILY 09/26/18 [History] Folic Acid 800 mcg PO DAILY 10/24/18 [History] Amiodarone [Cordarone] 200 mg PO DAILY 11/06/18 [History] Aspirin 81 mg PO DAILY 11/06/18 [History] Furosemide [Lasix] 40 mg PO BID 11/06/18 [History] Roflumilast [Daliresp] 500 mcg PO DAILY 11/06/18 [History] Acetaminophen [Tylenol] 650 mg PO Q4HR PRN tablet 11/10/18 [Rx] Budesonide/Formoterol 160/4.5 [Symbicort 160/4.5] 2 puff IH BIDR inh 11/10/18 [Rx] Glucagon, Human Recombinant [Glucagen] 1 mg IM ONCE PRN vial 11/10/18 [Rx] Insulin DETEMIR [Levemir] 10 unit SQ HS mls 11/10/18 [Rx] Insulin LISPRO [HumaLOG] 0 units SQ HS vial 11/10/18 [Rx] Insulin LISPRO [HumaLOG] 0 units SQ TIDAC vial 11/10/18 [Rx] Lisinopril [Zestril] 2.5 mg PO Q12HR tablet 11/10/18 [Rx] Mag Hydrox/Al Hydrox/Simeth [Maalox] 30 ml PO Q4H PRN udc 11/10/18 [Rx] Metoprolol XL (24 HR) Succ [Toprol Xl] 12.5 mg PO Q12HR tab.er.24h 11/10/18 [Rx] Ondansetron ODT [Zofran ODT] 4 mg SL Q6HR PRN tab.rapdis 11/10/18 [Rx] Polyethylene Glycol 3350 [MiraLAX] 17 gm PO DAILY PRN powd.pack 11/10/18 [Rx] metFORMIN [Glucophage] 750 mg PO HS tablet 11/10/18 [Rx] Allergies/Adverse Reactions: Allergy/AdvReac Type Severity Reaction Status Date / Time contrast dye Allergy Hives Uncoded 09/25/18 08:50 Date of admission: 11/06/18 12:24 Primary care physician: Kuldip Forrest MD Consults: 11/06/18 13:11 Consult to Occupational Therapy [CONS] Routine Comment: Deconditioning Reason for Consult: Deconditioning Does patient have active BEDREST order?: No Is patient medically & hemodynamically stable?: Yes Consult to Physical Therapy [CONS] Routine Comment: Deconditioning Reason for Consult: Deconditioning Does patient have active BEDREST order?: No Is patient medically & hemodynamically stable?: Yes Consult to Recreational Therapy [CONS] Routine Comment: Consult to Representative [CONS] Routine Reason for SW Consult: Deconditioning Discharging clinician: Andriy Bailey Anticipated date of discharge: 11/10/18 - Constitutional Vitals: Temp Pulse Resp BP Pulse Ox 97.8 F 80 15 98/60 100 11/10/18 07:31 11/10/18 07:31 11/10/18 07:31 11/10/18 07:31 11/10/18 07:31 General appearance: Present: cooperative, A&O X 3, pleasant, no acute distress, obese, answers questions appropriately - Head Head exam: Present: atraumatic, normocephalic - Eye Eye exam: Present: PERRL, conjuntiva pink, sclera anicteric Pupils: Present: PERRL - Neck Neck exam general surgery: Present: supple, trachea midline. Absent: lymphadenopathy - Respiratory Respiratory exam: Present: CTAB. Absent: accessory muscle use, rales, rhonchi, wheezes - Cardiovascular Cardiovascular exam: Present: irregular rhythm, +S1, +S2. Absent: diastolic murmur, gallop, rubs, systolic murmur - GI/Abdominal GI/Abdominal exam: Present: normal bowel sounds, soft, no peritoneal signs. Absent: distended, tenderness - Extremities Exam Extremities exam: Present: warm, radial pulses palpable and symmetrical. Absent: calf tenderness, cyanotic, pedal edema - Neurological Exam Neurological exam: Present: CN II-XII intact, oriented X3, no focal deficits. Absent: pronater drift, facial droop, speech deficit - Skin Skin exam: Present: dry, intact - Patient Status Disposition: Transfer SNF Condition: Fair Functional capacity at discharge: uses cane/walker Overall status at discharge: patient is progressing back to baseline - Discharge Instructions Follow Up With: Kuldip Forrest MD [Primary Care Provider] - - Diet and Activity Activity: as per physical therapy Diet: diabetic diet, low fat, low cholesterol - VTE Documentation of Mechanical Device: Graduated compression elastic hosiery
--- NOTE | 2018-11-10 09:58 | Physician Discharge Referral ---
ExtendedCare Referral Info Transfer To: [facility] Provider in Charge after Transfer: PCP Institutional Level of Care: Skilled - Diagnosis (1) CAD (coronary artery disease) Priority: Secondary Status: Chronic (2) HFrEF (heart failure with reduced ejection fraction) Priority: Primary Status: Chronic (3) COPD (chronic obstructive pulmonary disease) Priority: Secondary Status: Chronic (4) Atrial fibrillation Priority: Secondary Status: Chronic (5) Diabetes Priority: Secondary Status: Chronic (6) Anemia Priority: Secondary Status: Chronic Prognosis: Good Aware of Diagnosis: Patient, Family Aware of Prognosis: Patient, Family - Transfer Medications Home Medications: traZODone [TraZODone] 50 mg PO HS PRN 05/16/15 [History] Atorvastatin Calcium [Lipitor] 80 mg PO QPM 01/07/17 [History] Cholecalciferol (D-3) [Vitamin D] 1,000 unit PO DAILY 01/07/17 [History] Ferrous Gluconate 324 mg PO DAILY 01/07/17 [History] GlipiZIDE [Glucotrol] 2.5 mg PO DAILY 01/07/17 [History] Guaifenesin [Mucinex] 600 mg PO BID PRN 01/07/17 [History] Isosorbide MONOnitrate (24 HR) [Imdur] 60 mg PO DAILY 01/07/17 [History] Latanoprost [Xalatan] 1 drop BOTH EYES HS 01/07/17 [History] Loratadine [Claritin] 10 mg PO DAILY 01/07/17 [History] Magnesium Oxide [Magnesium] 400 mg PO DAILY 01/07/17 [History] Nitroglycerin [Nitrostat] 0.4 mg SL Q5M PRN 01/07/17 [History] Oxygen 4 l NS CONT 01/07/17 [History] Pantoprazole Sodium [Protonix] 40 mg PO BID 01/07/17 [History] Potassium Chloride [Klor-Con 10] 10 meq PO DAILY 01/07/17 [History] Albuterol Neb [Proventil Neb] 2.5 mg IH Q6HR PRN 09/26/18 [History] Buspirone HCl [Buspar] 10 mg PO BID 09/26/18 [History] Calcium Carbonate/Vitamin D3 [Calcium 500 + Vit D Caplet] 1 tab PO DAILY 09/26/18 [History] Tiotropium [place] [Spiriva Respimat] 2 puff IH DAILY 09/26/18 [History] Folic Acid 800 mcg PO DAILY 10/24/18 [History] Amiodarone [Cordarone] 200 mg PO DAILY 11/06/18 [History] Aspirin 81 mg PO DAILY 11/06/18 [History] Furosemide [Lasix] 40 mg PO BID 11/06/18 [History] Roflumilast [Daliresp] 500 mcg PO DAILY 11/06/18 [History] Acetaminophen [Tylenol] 650 mg PO Q4HR PRN tablet 11/10/18 [Rx] Budesonide/Formoterol 160/4.5 [Symbicort 160/4.5] 2 puff IH BIDR inh 11/10/18 [Rx] Glucagon, Human Recombinant [Glucagen] 1 mg IM ONCE PRN vial 11/10/18 [Rx] Insulin DETEMIR [Levemir] 10 unit SQ HS mls 11/10/18 [Rx] Insulin LISPRO [HumaLOG] 0 units SQ HS vial 11/10/18 [Rx] Insulin LISPRO [HumaLOG] 0 units SQ TIDAC vial 11/10/18 [Rx] Lisinopril [Zestril] 2.5 mg PO Q12HR tablet 11/10/18 [Rx] Mag Hydrox/Al Hydrox/Simeth [Maalox] 30 ml PO Q4H PRN udc 11/10/18 [Rx] Metoprolol XL (24 HR) Succ [Toprol Xl] 12.5 mg PO Q12HR tab.er.24h 11/10/18 [Rx] Ondansetron ODT [Zofran ODT] 4 mg SL Q6HR PRN tab.rapdis 11/10/18 [Rx] Polyethylene Glycol 3350 [MiraLAX] 17 gm PO DAILY PRN powd.pack 11/10/18 [Rx] metFORMIN [Glucophage] 750 mg PO HS tablet 11/10/18 [Rx] Allergies/Adverse Reactions: Allergy/AdvReac Type Severity Reaction Status Date / Time contrast dye Allergy Hives Uncoded 09/25/18 08:50 - Respiratory Orders Oxygen / L per min Smoking Cessation: Smoking cessation has been advised. For more information, call the [place] Tobacco Quit Line at 1-999-VNOE-NOW. - Advance Directives Code Status: Full Code - Mobility Orders Ambulate - Rehabiliation Orders Rehab Potential: Good Rehab Orders: Evaluation for Physical Therapy, Evaluation for Occupational Therapy - Diet Orders No Concentrated Sweets, Cardiac CERTIFICATION: I certify that the transfer of the above named patient to an Extended Care Facility is necessary for the continuing treatment of the diagnosis listed. The above information is true and accurate reflection of patient's current condition. Confidential - Redisclosure prohibited without a patient's written consent.
[2018-11-10] MEDS: Budesonide/Formoterol 160/4.5 1 PUFF INH IH SCH (10:54)
[2018-11-10] MEDS: (Tiotropium Bromide [Spiriva Respimat] 2 PUFF) IH SCH (10:57)
== END 2018-11-10 14:00 | DRG 292 ==
LOC: INPGRE 12:24